=== PATIENT | female | born 1960 | race Caucasian/White ===

== ENCOUNTER → 2017-11-23 10:43 | Outpatient (CLI) | payer OTHER, SELFPAY ==
--- NOTE | 2017-11-23 11:17 | XR_ITS ---
XR chest 2V COMPARISON: CT scan abdomen pelvis 04/16/2014 HISTORY: Chest pain TECHNIQUE: PA and lateral chest FINDINGS: The lung figueroa are well expanded and appear clear of infiltrate. There is focal eventration of the right hemidiaphragm. There is a double density seen through the cardiac shadow left base consistent patient's known large hiatal hernia with approximately 1/4-1/3 of the stomach above the diaphragmatic hiatus. There is no pleural fluid. IMPRESSION: Nonacute chest findings
[2017-11-23 12:54] LABS: CKMB Relative Index 1.6 U/L (0-4.0); Creatine Kinase 85 U/L (26-192); Creatine Kinase MB 1.4 ng/ml (0.0-3.6); Troponin I < 0.02 ng/ml (0.00-0.06)
== END ==
PROVIDERS: PCP Family Medicine; Visit Provider Family Medicine
DX: R07.9 Chest pain, unspecified (principal)
CPT/HCPCS: 36415; 71046; 82550; 82553; 84484; 93005

== ENCOUNTER → 2017-12-10 08:12 | Outpatient (CLI) | payer OTHER, SELFPAY | PROVIDERS: Family Provider Family Medicine; PCP Family Medicine; Visit Provider Family Medicine | DX: R07.9 Chest pain, unspecified (principal) | CPT/HCPCS: 93017 ==

== ENCOUNTER 2018-01-03 09:09 | Outpatient (RCR) | payer OTHER, SELFPAY | END 2018-01-03 09:10 | disposition home or self-care (01) | LOC: PT 09:09 | PROVIDERS: Family Provider Family Medicine; PCP Family Medicine; Visit Provider Internal Medicine | DX: Z95.5 Presence of coronary angioplasty implant and graft (principal) | CPT/HCPCS: 93798 ==

== ENCOUNTER → 2018-01-18 09:14 | Outpatient (CLI) | payer OTHER, SELFPAY ==
[2018-01-18 10:50] LABS: Albumin Level 3.4 gm/dL (3.4-5.0); Alkaline Phosphatase 103 U/L (46-116); Bilirubin,Direct 0.1 mg/dL (0.0-0.2); HDL Cholesterol 33 mg/dL (29-89); Total Protein,Serum 6.5 gm/dL (6.4-8.2)
[2018-01-18 11:17] LABS: Alanine Aminotransferase 42 U/L (12-78); Bilirubin,Indirect 0.3 mg/dL (0.0-0.9); Bilirubin,Total 0.4 mg/dL (0.2-1.0); Chol/HDL Ratio 2.9 (1-3.5); Cholesterol 96 mg/dL (140-200); LDL Cholesterol 32 mg/dL (0-130); Triglycerides 155 mg/dL (30-200); VLDL Cholesterol 31 mg/dL (0-40)
[2018-01-18 11:20] LABS: Aspartate Amino Transferase 30 U/L (15-37)
== END ==
PROVIDERS: Family Provider Family Medicine; PCP Family Medicine; Visit Provider Internal Medicine Cardiovascular Disease
DX: R00.2 Palpitations (principal); R06.09 Other forms of dyspnea; I20.9 Angina pectoris, unspecified; R53.83 Other fatigue; Z79.899 Other long term (current) drug therapy; E66.9 Obesity, unspecified
CPT/HCPCS: 36415; 80061; 80076

== ENCOUNTER → 2018-07-10 07:23 | Outpatient (CLI) | payer OTHER, SELFPAY ==
[2018-07-10 08:09] LABS: Basophils # 0.1 K/mm3 (0-0.2); Basophils % 0.7 % (0.1-2.0); Eosinophils # 0.2 K/mm3 (0.0-0.4); Eosinophils % 3.3 % (0.1-12.0); Hematocrit 41.3 % (37.0-47.0); Hemoglobin 13.2 g/dL (12.2-16.2); Lymphocytes # 2.7 K/mm3 (0.7-4.5); Lymphocytes % 42.2 % (10-50); Mean Corpuscular Hemoglobin 30.7 pg (27.0-31.2); Mean Platelet Volume 8.5 fl (7.4-10.4); Monocytes # 0.4 K/mm3 (0.1-1.0); Monocytes % 5.5 % (1.7-9.3); Neutrophils # 3.1 K/mm3 (1.8-7.8); Neutrophils % 48.3 % (37.0-80.0); Platelet Count 211 K/mm3 (142-424); Red Cell Distribution Width 13.7 % (11.5-17.5); White Blood Count 6.4 K/mm3 (4.8-10.8)
[2018-07-10 08:44] LABS: Hemoglobin A1C 7.2 % (0.0-7.0)
[2018-07-10 09:19] LABS: Alanine Aminotransferase 36 U/L (12-78); Albumin Level 3.3 gm/dL (3.4-5.0); Alkaline Phosphatase 105 U/L (46-116); Anion Gap 12.7 mEq/L (5-15); Aspartate Amino Transferase 19 U/L (15-37); Bilirubin,Total 0.4 mg/dL (0.2-1.0); Blood Urea Nitrogen 13 mg/dL (7-18); Calcium 9.1 mg/dL (8.5-10.1); Carbon Dioxide 30 mmol/L (21.0-32.0); Chloride 105 mmol/L (98-107); Chol/HDL Ratio 2.5 (1-3.5); Cholesterol 98 mg/dL (140-200); Estimated Glomerular Filt Rate 74 ml/min (>60); GFR (African American) 89 ML/MIN (>60); Globulin 3.2 gm/dl (1.3-3.2); Glucose 118 mg/dL (74-106); HDL Cholesterol 39 mg/dL (29-89); Iron 70 ug/dl (28-170); LDL Cholesterol 32 mg/dL (0-130); Potassium 4.7 mmoL/L (3.5-5.1); Sodium 143 mmol/L (136-145); Total Protein,Serum 6.5 gm/dL (6.4-8.2); Triglycerides 135 mg/dL (30-200); VLDL Cholesterol 27 mg/dL (0-40)
[2018-07-12 10:51] LABS: Folate >20.0 ng/mL (>3.0); Vitamin B12 1380 pg/mL (232-1245)
[2018-07-12 10:52] LABS: Vitamin D 25 Hydroxy 52.9 ng/mL (30.0-100.0)
== END ==
PROVIDERS: Visit Provider Family Medicine
DX: R73.9 Hyperglycemia, unspecified (principal); Z98.84 Bariatric surgery status
CPT/HCPCS: 36415; 80053; 80061; 82607; 82652; 82746; 83036; 83540; 85025

== ENCOUNTER → 2018-07-18 09:22 | Outpatient (CLI) | payer OTHER, SELFPAY ==
--- NOTE | 2018-07-18 09:24 | XR_ITS ---
XR knee RT 4V HISTORY: ITS.REASON: Knee pain ORDERING PHYSICIAN: Enrique Valdes MD PATIENT AGE: 58 years COMPARISON: None FINDINGS: Osteoarthritic changes are present involving all 3 compartments greater at the medial compartment and patellofemoral joint. No acute fracture or dislocation is evident. No lytic or blastic change. There are some nonspecific soft tissue calcifications along the medial aspect of the proximal tibia and along the pretibial region anteriorly which may be vascular. There is a calcification along the superior aspect of the patella which could be due to an old avulsion fracture. IMPRESSION: Mild to moderate osteoarthritic changes
--- NOTE | 2018-07-18 09:24 | XR_ITS ---
XR knee LT 4V HISTORY: Left knee pain ITS.REASON: Knee pain ORDERING PHYSICIAN: Enrique Valdes MD PATIENT AGE: 58 years COMPARISON: None FINDINGS: There are mild osteoarthritic changes involving all 3 compartments greater lung medial compartment and patellofemoral joint. No fracture or dislocation. No lytic or blastic change. There is a small calcific density along the lateral aspect of the medial joint space measuring 6 mm and may represent a loose body. There are a few calcific densities in the pretibial region anteriorly probably related to vascular calcifications. IMPRESSION: Mild to moderate osteoarthritis of the left knee with loose body of the medial compartment
--- NOTE | 2018-07-18 09:24 | XR_ITS ---
XR hip LT 2-3V w/pelvis HISTORY: Left hip pain ITS.REASON: Hip pain ORDERING PHYSICIAN: Enrique Valdes MD PATIENT AGE: 58 years COMPARISON: None FINDINGS: No fracture or dislocation. No significant arthritic change. Well-circumscribed calcific density is present just lateral to the ischium and could be related to an old avulsion injury of the ischium or accessory center of ossification. No lytic or blastic change. IMPRESSION: Negative left hip
--- NOTE | 2018-07-18 09:31 | MM_ITS ---
MM Dig screening mamm BI w/CAD ORDERING PHYSICIAN : Enrique Valdes MD PATIENT AGE: 58 years GENDER: Female COMPARISON: July 2017, 2015, 2014 INDICATION: ITS.REASON: SCREENING no hormones. No new complaints. Noncontributory family history TECHNIQUE: Standard CC and MLO images were obtained. R2 CAD reviewed. FINDINGS: Mild to moderate residual fibroglandular elements throughout both breast with with moderate fatty replacement..Lower density breast bilaterally. No dominant mass nor suspicious calcifications. No significant change in prior study. Bilateral follow-up in one year recommended. A stable scattered benign calcifications bilaterally. RIGHT BREAST:. No significant new findings follow-up in one year. LEFT BREAST: No new findings of significant concern. Minimal density at the central breast cc view is similar to 2016. Bilateral Follow-up in one year would be adequate IMPRESSION: Stable bilateral mammogram. No areas of significant concern. Bilateral follow-up in one recommended.\ BI-RADS Category: 2 Benign Finding(s) RECOMMENDED FOLLOW-UP: 1YR 1 YEAR FOLLOW-UP (A letter has been sent to the patient regarding results of the study.)
== END ==
PROVIDERS: PCP Family Medicine; Referring Provider Orthopaedic Surgery; Visit Provider Family Medicine
DX: M25.561 Pain in right knee (principal); M25.562 Pain in left knee; M25.552 Pain in left hip; Z12.31 Encounter for screening mammogram for malignant neoplasm of breast
CPT/HCPCS: 73502; 73564; 77067

== ENCOUNTER → 2019-02-14 16:27 | Outpatient (CLI) | payer OTHER, SELFPAY ==
--- NOTE | 2019-02-14 16:36 | XR_ITS ---
EXAM: XR cervical spine 3V HISTORY: Neck pain, paresthesias, left hand and arm numbness ITS.REASON: PARESTHESIA OF LEFT ARM ORDERING PHYSICIAN: MARLEE James PATIENT AGE: 59 years COMPARISON: None FINDINGS: Severe degenerative disc disease is present at C5-C6 and C6-C7. Moderate degenerative disc disease is present at C4-C5 and C7-T1. There is 3 mm anterolisthesis of C7. There is kyphosis at the C4-C5 interspace. Moderate facet arthritic changes are present C4-C7. No obvious fracture or dislocation. IMPRESSION: Severe degenerative disc disease C5-C6 and C6-C7 with kyphosis at C4-C5 and mild anterolisthesis of C7 on T1
--- NOTE | 2019-02-14 16:36 | XR_ITS ---
EXAM: XR lumbar spine min 4V HISTORY: ITS.REASON: ACTUE LOW BACK PAIN ORDERING PHYSICIAN: MARLEE James PATIENT AGE: 59 years COMPARISON: None FINDINGS: There is mild lumbar curvature convex right. Multilevel degenerative disc disease is present from T11 to S1. There is mild wedging of the T12 vertebral body which appears chronic. There is mild retrolisthesis of L1 on L2 and L2 on L3 of 3 and 4 mm and anterolisthesis of L4 on L5 of 9 mm. There is retrolisthesis of L5 on S1 of 5 mm. No acute fracture or dislocation is evident.. Facet arthritic changes are present at L4-L5 and L5-S1. Incidental note is made of a staghorn calculus in the left renal pelvis at 3.4 x 2 cm. There are 2 calculi in lower pole left kidney at 6 and 5 mm area IMPRESSION: 1. Lumbar spondylosis with multilevel degenerative disc disease and facet arthritic change as described above. 2. Left nephrolithiasis with staghorn calculus on the left
== END ==
PROVIDERS: PCP Family Medicine; Visit Provider Physician Assistant
DX: M54.5 Low back pain (principal); R20.2 Paresthesia of skin
CPT/HCPCS: 72040; 72110

== ENCOUNTER 2019-03-20 08:30 | Outpatient (RCR) | payer OTHER, SELFPAY ==
--- NOTE | 2019-03-04 09:48 | HMH.PTOPEV ---
PT Outpatient Evaluation Rehab PT Outpatient Evaluation Start: 03/04/19 08:53 Freq: Status: Active Protocol: Document 03/04/19 08:53 FREDDY (Rec: 03/04/19 09:48 FREDDY [id number]) Electronically Signed By Walter Maloney, PT 03/04/19 08:53 Outpatient Therapy Subjective History Subjective History Patient presents to outpatient PT with reports of chronic L hip and cervical spine of insidious onset. L hip pain starting approximately 8 months ago that has progressively gotten worse over the past 2 months. Cervical spine pain is intermittent. Most recent diagnostics indicate lumbar spondylosis/DDD and cervical DDD, C7/T1 anterolisthesis and increased kyphosis. Comorbidities include HTN, HLD , hx of heart cath. Chief Complaint Pain,Stiff Symptom Type Sharp,Shooting Symptoms Relieved By Activity,Shaking Symptoms Aggravated By Physical Activity,Walking Prior Functional Limitations None Current Functional Limitations Lifting,Housework,Standing, Squatting,Recreation Activity, Walking,Bending/Stooping Symptom Description Constant but Variable Level of pain today (0-10) 4 Pain scale - at its best (0-10) 2 Pain scale - at its worst (0-10) 8 Cervical Eval Palpation Cervical Muscles R CT Junction,L CT Junction Cervical/Thoracic Palpation Findings Tenderness Posture Head/C-Spine Posture Sitting Position C-Spine Flattened Head/C-Spine Posture Standing Position C-Spine Flattened Flexibility Deficits Upper Trapezius Muscle Length (R) Mild Tightness,(L) Mild Tightness Levaetor Scapulae Muscle Length (R) Mild Tightness,(L) Mild Tightness Pectoralis Minor Muscle Length (R) Mild Tightness,(L) Mild Tightness Passive Joint Mobility Cervical PIVM Dec: R C5/6 L C5/6 R C6/7 L C6/7 R C7/T1 L C7/T1 WNL: R OA L OA R AA L AA R C2/3
== END 2019-05-07 13:31 | disposition home or self-care (01) ==
LOC: PT 08:30
PROVIDERS: Visit Provider Physician Assistant
DX: M25.559 Pain in unspecified hip (principal); M54.2 Cervicalgia
CPT/HCPCS: 97010; 97014; 97033; 97035; 97110; 97163; G0283

== ENCOUNTER → 2019-09-15 10:38 | Outpatient (CLI) | payer OTHER, SELFPAY ==
--- NOTE | 2019-09-15 10:41 | MM_ITS ---
PROCEDURE: MM DIG SCREENING MAMM BI W/CAD CLINICAL INDICATION: SCREENING There is no personal or family history of breast cancer. COMPARISON: [facility] DIG MAMM-SCREEN BHARATI from 07/25/2016 [facility] DIG MAMM-SCREEN BHARATI W/CAD from 07/27/2017 [facility] MM Dig screening mamm BI w/CAD from 07/18/2018 TECHNIQUE: Standard CC and MLO images and 3D Tomosynthesis was obtained. R2 CAD reviewed. FINDINGS: Diffuse scattered fibroglandular densities are seen throughout both breasts somewhat lessening the sensitivity of mammography. There are scattered benign-appearing microcalcifications in each breast. There is a mole seen near the inframammary fold left breast. There is no suspicious lesion and no suspicious microcalcifications. [place] images were reviewed. IMPRESSION: Moderate diffuse breast density with no suspicious lesions seen BI-RAD Category: 2 Benign Finding(s) FOLLOW-UP: 1YR 1 Year Follow-up (A letter has been sent to the patient regarding results of the study.) Dictated by: Dr. Guy Ruiz MD 09/17/2019 08:[address] Guy Ruiz MD in [place] 09/17/2019 08:18
== END ==
PROVIDERS: PCP Family Medicine; Visit Provider Family Medicine
DX: Z12.31 Encounter for screening mammogram for malignant neoplasm of breast (principal)
CPT/HCPCS: 77063; 77067

== ENCOUNTER → 2019-09-16 08:48 | Outpatient (POV) | payer OTHER, SELFPAY | PROVIDERS: Visit Provider Dermatology | DX: Z00.00 Encounter for general adult medical examination without abnormal findings (principal) ==

== ENCOUNTER → 2020-03-29 12:33 | Outpatient (CLI) | payer OTHER, SELFPAY ==
--- NOTE | 2020-03-29 12:37 | XR_ITS ---
PROCEDURE: XR KNEE RT 4V CLINICAL INDICATION: RT knee pain COMPARISON: CR [id number] KNEE-4 OR 5 VIEWS-RT from 06/28/2017 CR [id number] KNEE-4 OR 5 VIEWS-LT from 06/28/2017 CR [id number] XR knee RT 4V from 07/18/2018 CR [id number] XR knee LT 4V from 07/18/2018 FINDINGS: No fracture or dislocation. No lytic or blastic change. There is normal mineralization. There are osteoarthritic changes involving all 3 compartments. There is mild lateral subluxation of the tibia by 6 mm. There is dystrophic calcification along the proximal medial aspect of the tibia. Hypertrophic changes are present along the inferior patella posteriorly and there is ununited ossification center along the superior patella Other findings:None. IMPRESSION: Osteoarthritic changes as described above Dictated by: Mulugeta Carrera MD 03/29/2020 13:14 Mulugeta Carrera MD in [place] 03/29/2020 13:14
== END ==
PROVIDERS: PCP Family Medicine; Visit Provider Orthopaedic Surgery
DX: M25.561 Pain in right knee (principal)
CPT/HCPCS: 73564

== ENCOUNTER → 2020-04-12 09:12 | Outpatient (CLI) | payer OTHER, SELFPAY ==
--- NOTE | 2020-04-12 09:16 | XR_ITS ---
PROCEDURE: XR HIP RT 2-3V W/PELVIS CLINICAL INDICATION: RT hip pain COMPARISON: CR [id number] XR hip LT 2-3V w/pelvis from 07/18/2018 FINDINGS: No acute fracture or dislocation. There are minimal osteoarthritic changes. There is a transverse area of sclerosis involving the femoral neck which is not significantly changed from 07/18/2018.. No lytic or blastic change. IMPRESSION: Minimal osteoarthritic change of the right hip Dictated by: Mluugeta Carrera MD 04/12/2020 10:40 Mulugeta Carrera MD in [place] 04/12/2020 10:40
== END ==
PROVIDERS: PCP Family Medicine; Visit Provider Orthopaedic Surgery
DX: M25.551 Pain in right hip (principal)
CPT/HCPCS: 73502

== ENCOUNTER → 2020-06-03 09:44 | Outpatient (POV) | payer OTHER, SELFPAY ==
[2020-06-03 10:07] VITALS: BP 154/94; PULSE 74; RESP 18; O2SAT 98; BMI 31.6
--- NOTE | 2020-06-03 12:06 | HMH.PMCON ---
Assessment and Plan (1) Right hip pain Status: Acute Category: Medical Code(s): M25.551 - Pain in right hip (2) Arthritis of right hip Status: Acute Category: Medical Code(s): M16.11 - Unilateral primary osteoarthritis, right hip (3) Numbness and tingling in left arm Status: Chronic Category: Medical Code(s): R20.0 - Anesthesia of skin; R20.2 - Paresthesia of skin - Assessment and plan all Dx Assessment and Plan for all problems:: The patient reports to not have any pain today. She is continue with aquatic therapy and says this is beneficial for her pain. She also undergoes chiropractic therapy which she also reports to be beneficial for her pain. She is not having any hip pain at this time. She does still have some numbness and tingling in her left arm, however, she does not want to pursue any type of interventional therapy to the area at this time. We will plan to follow-up with the patient as needed. We have establish care with the patient. If her pain does return she has been encouraged to contact the clinic for an appointment. The patient and I specifically discussed risk factors for COVID19. These risks include, but are not limited to age greater than 60, heart or lung disease, diabetes, immunosuppression, and travel. We also discussed NSAIDs may worsen COVID19 infection or symptoms. Patient should not use NSAIDs to treat COVID19 signs or symptoms. Patient was also informed that any type of corticosteroid of any form (oral or injection) will decrease the patient's immune system response and may increase the likelihood of COVID19 infection [address] symptoms[address]. Odom has reviewed this note and agrees with this plan of care. This note was dictated using voice recognition software and make contain errors or omissions. HPI - Data of Consult Patient: new to practice Consult date: 06/03/20 Requesting Physician: Ale Sandoval APRN Primary Care Provider: Enrique Valdes MD - Consult Narrative Reason for consult: Right hip pain History of present illness: Ms. Gottlieb is a 60 year old female who presents today for consultation for right hip pain. Patient says that approximately 1 month ago she began to develop severe right hip pain. She says that the pain was so intense she was unable to ambulate. The patient does see Dr. Reeder for bilateral knee pain. The patient was complaining of hip pain with Dr. Reeder who advised her to undergo an x-ray of her right hip. Dr. Reeder was also concerned that the patient may have radicular pain from her lumbar spine. Patient says that since seeing Dr. Reeder, she no longer has right hip pain. She says that the pain subsided on its own. She does take [id number] Motrin. She is complaining today, however, of left arm numbness and tingling. She says that it does stop at her wrist. She denies any numbness and tingling in her hands. Patient says she does not have any neck pain, however. Patient says that she has had this intermittent numbness and tingling to her left arm for many years. Patient says it is tolerable and not something that she wishes to seek treatment for at this time. Patient does currently undergo aquatic therapy. She did have physical therapy in the past but none of recent days. She is also had chiropractic therapy in the past which has given her relief of both her hip and her left arm numbness and tingling. Patient does rate her pain a 0 out of 10 today. She says she is here today with the appointment simply to establish care. CC: Ale Sandoval APRN [facility] History I have reviewed the patient's past medical history: Yes Medical History: Reports:: Coronary Artery Disease, Hyperlipidemia, Hypertension Denies:: Cancer, Diabetes Mellitus Type 1, Diabetes Mellitus Type 2, Internal Pacemaker, Lung Disease, MRSA, Seizures *Have you ever received a pneumonia vaccine?: Yes *Have you received a flu vaccine this season?: Yes Other Medical
== END ==
PROVIDERS: PCP Family Medicine; Visit Provider Clinical Nurse Specialist Family Health
DX: M25.551 Pain in right hip (principal); M16.11 Unilateral primary osteoarthritis, right hip; R20.0 Anesthesia of skin
CPT/HCPCS: 99202

== ENCOUNTER → 2020-11-22 10:21 | Outpatient (CLI) | payer OTHER, SELFPAY ==
--- NOTE | 2020-11-22 10:23 | MM_ITS ---
PROCEDURE: MM DIG SCREENING MAMM BI W/CAD Digital Breast Tomosynthesis Included CLINICAL INDICATION: SCREENING There is no personal or family history of breast cancer. COMPARISON: MG [facility] DIG MAMM-SCREEN BHARATI W/CAD from 07/27/2017 [facility] MM Dig screening mamm BI w/CAD from 07/18/2018 MG MM DIG SCREENING MAMM BI W/CAD from 09/15/2019 TECHNIQUE: Standard CC and MLO images and 3D Tomosynthesis was obtained. R2 CAD reviewed. FINDINGS: Moderate diffuse fibroglandular densities are seen throughout both breasts. There multiple benign-appearing micro and macrocalcifications in each breast. There are mole markers on each breast. There is no new or suspicious lesion in either breast and no suspicious microcalcifications. IMPRESSION: Moderate diffuse breast density with no suspicious lesions seen BI-RAD Category: 2 Benign Finding(s) FOLLOW-UP: 1YR 1 Year Follow-up (A letter has been sent to the patient regarding results of the study.) Dictated by: Dr. Guy Ruiz MD 11/24/2020 16:53 Dr. Guy Ruiz MD in [place] 11/24/2020 16:53
== END ==
PROVIDERS: PCP Family Medicine; Visit Provider Family Medicine
DX: Z12.31 Encounter for screening mammogram for malignant neoplasm of breast (principal)
CPT/HCPCS: 77063; 77067

== ENCOUNTER → 2020-11-24 08:08 | Outpatient (CLI) | payer OTHER, SELFPAY ==
[2020-11-24 08:50] LABS: Hemoglobin A1C 8.8 % (4.0-6.0)
[2020-11-24 09:00] LABS: Alanine Aminotransferase 26 U/L (12-78); Albumin Level 3.6 g/dl (3.5-5.0); Albumin/Globulin Ratio 1.3 (1.1-1.8); Alkaline Phosphatase 107 U/L (38-126); Anion Gap 9.3 mEq/L (5-15); Aspartate Amino Transferase 31 U/L (14-36); Bilirubin,Total 0.5 mg/dl (0.2-1.3); Blood Urea Nitrogen 14 mg/dl (7-17); Calcium 9.2 mg/dl (8.4-10.2); Carbon Dioxide 29 mmol/L (22.0-30.0); Chloride 109 mmol/L (98-107); Chol/HDL Ratio 3.2 (1-3.5); Cholesterol 115 mg/dl (140-200); Estimated Glomerular Filt Rate 85 ml/min (>60); GFR (African American) 103 ML/MIN (>60); Globulin 2.7 g/dL (1.3-3.2); Glucose 131 mg/dl (74-100); HDL Cholesterol 36 mg/dl (40-60); Potassium 4.3 mmoL/L (3.5-5.1); Sodium 143 mmol/L (136-145); Total Protein,Serum 6.3 g/dl (6.3-8.2); Triglycerides 120 mg/dl (30-150); VLDL Cholesterol 24 mg/dL (0-40)
[2020-11-24 10:05] LABS: Vitamin B12 923 pg/mL (239-931)
[2020-11-24 10:14] LABS: Folate > 20.00 ng/mL
[2020-11-24 10:22] LABS: Iron 71 ug/dL (37-170)
[2020-11-24 14:17] LABS: 25-OH Vitamin D, Total 44.1 ng/mL (30-100)
== END ==
PROVIDERS: Visit Provider Family Medicine
DX: E11.9 Type 2 diabetes mellitus without complications (principal); E78.5 Hyperlipidemia, unspecified; I10 Essential (primary) hypertension; Z79.84 Long term (current) use of oral hypoglycemic drugs; Z68.30 Body mass index [BMI] 30.0-30.9, adult
CPT/HCPCS: 36415; 80053; 80061; 82306; 82607; 82746; 83036; 83540

== ENCOUNTER → 2021-02-07 15:32 | Outpatient (CLI) | payer OTHER, SELFPAY ==
--- NOTE | 2021-02-07 15:36 | CT_ITS ---
PROCEDURE: CT ABDOMEN PELVIS WO CON CLINICAL INDICATION: STAGHORN RENAL CALCULUS Lt hip/flank pain COMPARISON: CT [id number] CT ABD PELVIS W/ CONTRAST from 04/16/2014 TECHNIQUE: Axial images obtained with sagittal and coronal reformats. All CT scans at the facility use one or more dose reduction, viz: automated exposure control, ma/kV adjustment per patient size (including targeted exams where dose is matched to indication, i.e. head), or iterative reconstruction technique. FINDINGS: LOWER THORAX: Coronary artery calcifications/stents are noted. Diaphragmatic hernia is present on the left posteriorly and medially containing portion of the bypassed stomach. ABDOMEN & PELVIS: Status post prior gastric bypass surgery. 4.8 x 3.8 cm cyst is present in the left hepatic lobe previously 4.3 by 3.8 cm. Hypodensity is present in the right hepatic lobe anteriorly at 7 mm unchanged. Slight increased density in the posterior aspect of the gallbladder inferiorly and could represent small stones or sludge. No acute finding of the spleen. 2 cm left adrenal nodule not significantly changed possibly due to an adenoma. Unremarkable appearance of the pancreas. Previously noted soft tissue density inferior to the head of the pancreas is once again noted but appears somewhat less apparent possibly due to a duodenal diverticulum. Please correlate with endoscopy and upper GI if not already performed. A 3 x 1.8 by 1 cm staghorn calculus is present in the left renal pelvis at the ureteropelvic junction with mild to moderate left-sided hydronephrosis. There is gas present within the left renal pelvis and calices. There are 2 stones are present in the lower pole renal calyx on the left as well measuring 6 mm each. There is a 2.5 cm cyst in the lower pole of the right kidney with a few small punctate stones in the lower pole. No ureteral calculi are evident. Triangular shaped area of increased soft tissue density is present in the anterior abdomen just posterior to the abdominal wall containing some coarse calcification. This density measures 2 point 3 x 3.3 cm not significantly changed in size but now containing some coarse calcification. No intestinal obstruction or free air. Unremarkable appendix. There is a focally dilated bowel loop in the left mid abdominal region and may be result from the previous gastric bypass. Colonic diverticulosis. No evidence of diverticulitis. No obvious pelvic mass or abnormal fluid collection. Degenerative changes are present in the lumbar spine with kyphosis at the thoracolumbar junction. There is 6 mm anterolisthesis of L4 on L5. Mild chronic wedging of T12. IMPRESSION: 1. Staghorn calculus of the left kidney at the renal pelvis and UPJ as described above. This measures 3 x 1.8 x 1 cm causing moderate left-sided hydronephrosis. Gas is present in the left renal pelvis and calices. Differential diagnosis includes emphysematous pyelonephritis versus recent instrumentation. 2. Bilateral nephrolithiasis. 3. Abnormal soft tissue density along the anterior abdominal wall centrally 9.5 cm cephalad to the umbilicus possibly related to scarring from previous surgery. Please correlate with patient's history. Soft tissue tumor would be included in the differential diagnosis. 4. Soft tissue density inferior to the head of the pancreas appears somewhat less a apparent possibly due to lack of IV and oral contrast. This could be due to a duodenal diverticulum and may be confirmed with endoscopy and upper GI if not already performed. 5. Other nonacute findings as described above. Please see above for detail. Dictated by: Mulugeta Carrera MD 02/08/2021 08:56 Mulugeta Carrera MD in [place] 02/08/2021 08:56
== END ==
PROVIDERS: PCP Family Medicine; Visit Provider Family Medicine
DX: N20.0 Calculus of kidney (principal)
CPT/HCPCS: 74176

== ENCOUNTER → 2021-02-22 15:55 | Outpatient (CLI) | payer OTHER, SELFPAY | PROVIDERS: Visit Provider Urology | DX: N20.0 Calculus of kidney (principal) | CPT/HCPCS: 87086; 87088; 87186 ==

== ENCOUNTER → 2021-02-26 10:51 | Outpatient (CLI) | payer OTHER, SELFPAY ==
[2021-02-26 10:55] LABS: MANUAL DIFFERENTIAL MANUAL DIFFERENTIAL (MANUAL DIFF)
[2021-02-26 11:50] LABS: Basophils # 0.1 K/mm3 (0-0.2); Basophils % 1.2 % (0.1-2.0); Eosinophils # 0.3 K/mm3 (0.0-0.4); Eosinophils % 3.5 % (0.1-12.0); Hematocrit 40.6 % (37.0-47.0); Hemoglobin 13.7 g/dL (12.2-16.2); Lymphocytes # 3.2 K/mm3 (0.7-4.5); Lymphocytes % 43.8 % (10-50); Mean Corpuscular HGB Conc 33.6 g/dL (31.8-35.4); Mean Corpuscular Hemoglobin 30.4 pg (27.0-31.2); Mean Corpuscular Volume 90.5 fl (81-99); Mean Platelet Volume 8.6 fl (7.4-10.4); Monocytes # 0.4 K/mm3 (0.1-1.0); Monocytes % 5.5 % (1.7-9.3); Neutrophils # 3.4 K/mm3 (1.8-7.8); Platelet Count 213 K/mm3 (142-424); Red Blood Count 4.49 M/mm3 (4.20-5.40); Red Cell Distribution Width 13.7 % (11.5-17.5); White Blood Count 7.4 K/mm3 (4.8-10.8)
[2021-02-26 12:09] LABS: Eosinophils % 4 % (0-3); Lymphocytes % 39 % (10-50); Macrocytosis 1+; Monocytes % 15 % (2-9); Neutrophils % 41 % (42-76); Platelet Estimate Normal; Total Cells Counted 100
[2021-02-26 12:21] LABS: Chloride 103 mmol/L (98-107); Sodium 141 mmol/L (136-145)
[2021-02-26 12:22] LABS: Potassium 4.8 mmoL/L (3.5-5.1)
[2021-02-26 12:24] LABS: Blood Urea Nitrogen 13 mg/dl (7-17); Estimated Glomerular Filt Rate 85 ml/min (>60); GFR (African American) 103 ML/MIN (>60)
[2021-02-26 12:25] LABS: Anion Gap 12.8 mEq/L (5-15); Calcium 9.6 mg/dl (8.4-10.2); Carbon Dioxide 30 mmol/L (22.0-30.0); Glucose 129 mg/dl (74-100)
== END ==
PROVIDERS: Visit Provider Urology
DX: Z01.812 Encounter for preprocedural laboratory examination (principal); Z11.52 Encounter for screening for COVID-19; N20.0 Calculus of kidney
CPT/HCPCS: 36415; 80048; 85007; 85014; 85018; 85048; 85049; U0003

== ENCOUNTER 2021-02-28 10:17 | Day surgery (SDC) | payer OTHER, SELFPAY ==
[2021-02-28] VITALS (10 sets, daily range): BP systolic 120–153; BP diastolic 66–104; PULSE 56–85; RESP 12–18; TEMP 36.1–43; O2SAT 93–100
--- NOTE | 2021-02-28 12:54 | P.PN_ITS ---
[facility] Anesthesia Checklist - Structural Data Admitted From: Home Planned Operative Procedure/s: cysto w stent Consent for Planned Operative Procedure(s) Verified: Yes - Additional verifications Anesthesia Reactions: No Hx Blood Transfusions: No Blood Transfusion Reaction: No - Airway Assessment C-Spine Mobility Assessed: Yes TMJ Mobility Assessed: Yes Dentition: Dentures-good fit - Neurological Assessment Level of Consciousness: Awake, Alert, Appropriate - Anesthesia Plan Anesthesia Risk discussed: Yes Anesthesia Plan: Verified ASA Class: III Anesthesia Type: General [facility] History I have reviewed the patient's past medical history: Yes Medical History: Reports:: Coronary Artery Disease, Diabetes Mellitus Type 2, Hyperlipidemia, Hypertension Denies:: Cancer, Diabetes Mellitus Type 1, Internal Pacemaker, Lung Disease, MRSA, Seizures *Have you ever received a pneumonia vaccine?: No *Have you received a flu vaccine this season?: Yes Other Medical History: Reports: Arthritis, Other. Denies: Blood Transfusion Reaction Anesthesia experience/problems:: none Other Surgeries: Yes: No Previous Surgery, Bariatric Surgery, Cardiac Catheterization, Colonoscopy, Coronary Stent, Hernia Repair, Tubal Ligation. No: Pacemaker Amputation: No Fractures: No - *Social History Smoking Status: Former smoker Alcohol Intake: never Alcohol Intake Frequency:: other Substance Use Type: denies use *Occupational Status:: employed Housing: house Household Members: spouse *Travel in the last 8 weeks: None Family Hx:: Diabetes, Cancer
--- NOTE | 2021-02-28 13:28 | HMH.ANESI ---
[facility] Anesthesia Record Part I Intake, IV Amount: 1,200 Estimated blood loss (mL): 0 Urine output (mL): 0 Blood Pressure: 153/89 SaO2: 95 Pulse Rate: 67 Respiratory Rate: 12 Temperature: 97.8 F Patient is:: Awake, Stable Stable to PACU at:: 13:25
--- NOTE | 2021-02-28 13:32 | XR_ITS ---
PROCEDURE: XR KUB CLINICAL INDICATION: CYSTO EITH STENT PLACEMENT LEFT SIDE COMPARISON: CT CT ABDOMEN PELVIS WO CON from 02/07/2021 FINDINGS: Retrograde contrast administration of the left pelvicalyceal system demonstrates minor clubbing of the calluses of the left kidney. Focal filling defect is noted in the proximal left ureter which may represent known calculus. Focused bladder view demonstrates stent placement on the 2nd image. IMPRESSION: Left ureteric stent. Dictated by: Shira Grubbs 02/28/2021 15:18 Shira Grubbs in [place] 02/28/2021 15:18
--- NOTE | 2021-02-28 13:58 | PC.NURSE ---
1355- blood sugar taken by valentin phipps and valentin neves. Blood Glucose was 110. 1354- Detailed report called to Clement Gibbs rn. Pt left in stable condition with valentin stewart by valentin jensen.
[2021-02-28 14:01] LABS: POC Glucose,Bedside 110 (70-110)
[2021-02-28 14:39] LABS: Microscopic, Urine URINE MICROSCOPIC (MICROSCOPIC)
[2021-02-28 14:50] LABS: Appearance,Urine SL CLOUDY (Clear); Bilirubin,Urine Negative (Negative); Blood, Urine 3+ (Negative); Color,Urine STRAW (Yellow); Glucose,Urine (UA) Negative (Negative); Ketones,Urine Negative (Negative); Leukocyte Esterase,Urine Negative (Negative); Nitrate,Urine Negative (Negative); PH,Urine 5.5 (5.0-8.5); Protein,Urine Negative (Negative); Specific Gravity, Urine <= 1.005 (1.005-1.030); Urobilinogen,Urine 0.2 EU/dl (0.2)
[2021-02-28 15:16] LABS: RBC,Urine 20-50 #/hpf (0-3)
--- NOTE | 2021-02-28 15:19 | P.OP_ITS ---
Date of procedure: 02/28/21 Pre-op Diagnosis:: 3 cm left UPJ stone with obstruction Post-op Diagnosis:: 3 cm left UPJ with obstruction Procedure performed:: Cystoscopy with left retrograde pyelogram and left stent placement, complicated Surgeon:: Sherif Moore MD SHAPING MACHINE OPERATOR:: Preston Sethi Anesthesia: LMA Estimated blood loss (mL): 0 Clinical Note:: Patient is a 61-year-old white female with a 3 cm stone noted on recent CT scan. There was evidence of some gas in the renal pelvis as well on the CT scan. She denies any fevers or chills or feeling poorly. She presents today for urologic evaluation and management. Operative findings:: There was evidence of ureteral narrowing distal to the stone and there was difficulty passing the wire up to the level of the stone with some tortuosity of the proximal ureter. I was unable to pass a wire initially and a retrograde pyelogram was performed showing that there was a thin line of contrast that got by the stone inferiorly. Fortunately I was able to pass the stent and there was very little urine from the kidney. Operative note:: Patient taken to the operating room after informed consent was obtained. She was placed on the operating table in the supine position and general anesthesia administered. She had been on oral Levaquin at home for the past few days. Sequential compression devices placed and she was placed into the dorsolithotomy position. She was prepped draped in the standard surgical fashion. A 22 Holden passed into the urethra and into the bladder without difficulty. The bladder was examined in a systematic fashion and there is no evidence of bladder abnormalities. The ureteral orifices in their normal anatomic position. A 5 F rench ureteral catheter passed into the left ureteral orifice and proximally. There was resistance in the mid ureter and the sensor guidewire was then passed through the ureteral catheter. There is noted to be some tortuosity of the proximal ureter 3 cm below the stone. After multiple attempts to negotiate the tortuous ureter with the sensor guidewire I removed the sensor guidewire and used a 0.035 zip wire through the ureteral catheter and the wire did negotiate some of the tortuosity but did have trouble getting by the stone. Then removed the zip wire and a retrograde pyelogram was performed showing some extravasation of contrast from the proximal ureter but a thin wisp of contrast was noted in the inferior part of the ureter. With this as a landmark I replaced the zip wire with a curved and and manipulated the guidewire to where I force and was able to pass it through the tract at the inferior end of the UPJ and into the renal pelvis. I then passed the ureteral catheter over the wire and remove the zip wire and replaced the sensor guidewire. I then passed a 6 x 26 Spanish stent over the guidewire and removed the guidewire as well as the string. A good curl was noted proximally and distally. Inspection of the stent afterwards revealed very little urine output through the stent. Urine was noted to come from around the ureteral orifice. The proximal end of the stent was in the upper pole calyx. It is concerning that there was a small amount of urine after placement of the stent. Discussed the findings with the patient's family. Plan will be to repeat a CT scan in a couple of weeks to evaluate for the pyelitis. She will continue on with Levaquin in the meantime. Condition: stable Disposition: PACU Specimens:: Urine culture Complications:: None
--- NOTE | 2021-03-01 07:44 | P.PN_ITS ---
[facility] Anesthesia Record Part II Discharge Time: 13:55 Destination: Surgical Day Care (OP Surgery) PACU nurse assessment reviewed?: Yes Patient Condition:: Good Anesthesia Complications:: None Swallowing reflex intact?: Yes Cyanosis?: No Blood Pressure: 146/97 Pulse Rate: 58 Temperature: 98 F Mental Status: Alert & Oriented Pain level:: 0 Nausea and/or vomitting:: None Intake, IV Amount: 0
[2021-03-01 07:45] VITALS: BP 146/97; PULSE 58; TEMP 36.6
[2021-03-01 10:57] LABS: POC Glucose,Bedside 109 (70-110)
== END 2021-02-28 14:32 | disposition home or self-care (01) ==
LOC: OR 10:20
PROVIDERS: PCP Family Medicine; Visit Provider Urology
PROC: (CPT 52005; principal; 2021-02-28 11:45)
DX: N13.8 Other obstructive and reflux uropathy (principal); N20.1 Calculus of ureter; E11.9 Type 2 diabetes mellitus without complications; I25.10 Atherosclerotic heart disease of native coronary artery without angina pectoris; E78.5 Hyperlipidemia, unspecified; I10 Essential (primary) hypertension; M19.90 Unspecified osteoarthritis, unspecified site; Z87.891 Personal history of nicotine dependence; Z80.9 Family history of malignant neoplasm, unspecified; Z83.3 Family history of diabetes mellitus
CPT/HCPCS: 52005; 74018; 81001; 82962; 87086; C1769; C2617; J2405

== ENCOUNTER → 2021-03-22 08:31 | Outpatient (CLI) | payer OTHER, SELFPAY ==
--- NOTE | 2021-03-22 08:35 | CT_ITS ---
PROCEDURE: CT ABDOMEN PELVIS WO CON CLINICAL INDICATION: kidney stone Left lower quadrant pain, left kidney stone, stent in place COMPARISON: CT ABDPELW CT ABD PELVIS W/ CONTRAST from 04/16/[address] ABDOMEN PELVIS WO CON from 02/07/2021 TECHNIQUE: Axial images obtained with sagittal and coronal reformats. All CT scans at the facility use one or more dose reduction, viz: automated exposure control, ma/kV adjustment per patient size (including targeted exams where dose is matched to indication, i.e. head), or iterative reconstruction technique. FINDINGS: LOWER THORAX: Coronary artery stent noted in the LAD region. ABDOMEN & PELVIS: Lobulated hypodensity in the left hepatic lobe measures 4.8 by 4.3 cm consistent with a hepatic cyst. Smaller hypodensity right hepatic lobe at 7 mm consistent with a cyst. Status post gastric bypass surgery. Multiple calcified granulomata of the spleen. Left adrenal gland is enlarged measuring near 0 Hounsfield units consistent with adenoma. Possible small gallstones. There is a left ureteral stent in place with the proximal aspect curled in the left mid polar renal calyx and distal aspect curled in the region of the urinary bladder. There is some minimal stranding of the fat around the left ureter. A prominent renal stone is present in the left UPJ measuring 2.5 cm by 1 x 1.5 cm. There are peripelvic renal cysts in the upper pole. Smaller caliceal stones are present on the left as well in the lower pole at 6 mm each. No hydronephrosis evident on the left. Previously noted dilated renal calices have improved since stent placement. There are punctate calculi of the right kidney. A 3 cm cyst is present in the lower pole on the right. No right ureteral calculi apparent. The there is a mild amount of retained colonic feces with colonic diverticulosis. No evidence of diverticulitis. No evidence of appendicitis. No intestinal obstruction or free air. No change Triangular-shaped soft tissue density noted deep to the abdominal wall 10 cm cephalad to the umbilicus containing some coarse calcification. There is mild stranding of the fat in the left pelvic sidewall and may be related to recent ureteral stent placement. Inflammatory changes here are consideration. IMPRESSION: 1. Left ureteral stent in place with left nephrolithiasis with a 2.5 x 1.5 cm stone in the left UPJ and proximal ureter with other left renal calculi in renal cyst with improvement in the left-sided hydronephrosis. There is mild stranding of the periureteral fat and left pelvic sidewall fat which may be related to the recent stent placement. 2. Nonobstructing punctate right renal calculi. 3. Other nonacute findings as described above. Dictated by: Mulugeta Carrera MD 03/23/2021 11:12 Mulugeta Carrera MD in [place] 03/23/2021 11:12
--- NOTE | 2021-03-22 12:45 | NM_ITS ---
PROCEDURE: NM RENAL FLOW AND FUNCTION CLINICAL INDICATION: kidney stone- lasix w-washout Evaluate function of left kidney COMPARISON: CT CT ABDOMEN PELVIS WO CON from 03/22/2021 FINDINGS: Dose: 9.93 mCi technetium Mag 3 40 mg Lasix IV with 20 mg given at 15 minutes and 20 mg given at 16 minutes Renal vascular phase images shows decreased blood flow to the left kidney compared to the right on the initial images. There is delayed renal excretion on left. Post Lasix images show downward slope to both kidneys. No evidence of obstruction. Relative function is 40 percent to the left kidney and 60 percent to the right kidney with a T max of 15.2 minutes on the left and 4.7 minutes on the right and T half max 17.7 minutes on the left and 4.4 minutes on the right. Percent excretion by the left kidney at 20 minutes is 7 percent and by the right kidney 76 percent. IMPRESSION: Decreased flow and delayed excretion of the left kidney compared to the right with relative function of 40 percent on the left and 60 percent on the right. No evidence of obstruction. Dictated by: Mulugeta Carrera MD 03/23/2021 09:02 Mulugeta Carrera MD in [place] 03/23/2021 09:02
--- NOTE | 2021-03-22 13:15 | HMH.ITSHM ---
Current Home Medications as stated by this patient Kimberly Gottlieb or technical support representative. []NITRO MULTIVITAMIN METFORMIN ATORVASTATIN ASA METOPROLOL LOSARTAN
== END ==
PROVIDERS: PCP Family Medicine; Visit Provider Urology
DX: N20.0 Calculus of kidney (principal)
CPT/HCPCS: 74176; 78707; A9562

== ENCOUNTER → 2021-04-26 10:44 | Outpatient (CLI) | payer OTHER, SELFPAY | PROVIDERS: Visit Provider Urology | DX: Z20.822 Contact with and (suspected) exposure to COVID-19 (principal) | CPT/HCPCS: C9803; U0003; U0005 ==

== ENCOUNTER → 2021-11-24 12:51 | Outpatient (CLI) | payer OTHER, SELFPAY ==
--- NOTE | 2021-11-24 12:54 | MM_ITS ---
PROCEDURE INFORMATION: Exam: MG Bilateral Screening 3D Mammography Exam date and time: 11/24/2021 12:53 PM Age: 61 years old Clinical indication: Screening examination TECHNIQUE: Imaging protocol: Bilateral Screening tomosynthesis and 2D mammography including computer-aided detection (CAD) when performed. COMPARISON: 1. MG MM DIG SCREENING MAMM BI W/CAD 11/22/2020 10:24 AM 2. MG MM DIG SCREENING MAMM BI W/CAD 09/15/2019 11:03 AM FINDINGS: MAMMOGRAPHY: Breast composition: The breast tissue is composed of scattered areas of fibroglandular density. Mass: None. Architectural distortion: None. Calcifications: No suspicious calcifications. Asymmetric density: None. Skin thickening: None. Axillary adenopathy: None. IMPRESSION: No mammographic evidence of malignancy. Annual screening is recommended unless otherwise clinically indicated. ASSESSMENT: BI-RADS Category 1: Negative
== END ==
PROVIDERS: PCP Family Medicine; Visit Provider Family Medicine
DX: Z12.31 Encounter for screening mammogram for malignant neoplasm of breast (principal)
CPT/HCPCS: 77063; 77067

== ENCOUNTER → 2021-12-20 11:37 | Outpatient (CLI) | payer OTHER, SELFPAY | PROVIDERS: Visit Provider Internal Medicine Gastroenterology | DX: Z01.812 Encounter for preprocedural laboratory examination (principal); Z11.52 Encounter for screening for COVID-19; Z12.11 Encounter for screening for malignant neoplasm of colon; Z80.0 Family history of malignant neoplasm of digestive organs | CPT/HCPCS: C9803; U0003; U0005 ==

== ENCOUNTER 2021-12-22 07:59 | Day surgery (SDC) | payer OTHER, SELFPAY ==
[2021-12-20 11:19] VITALS: BMI 30.2
--- NOTE | 2021-12-22 08:14 | HMH.ANESCL ---
[facility] Anesthesia Checklist - Patient Identification Patient Identification: Arm Band - Structural Data Admitted From: Home Planned Operative Procedure/s: Colonoscopy Consent for Planned Operative Procedure(s) Verified: Yes - NPO Status Verified Time NPO: 05:00 (Prep) - Additional verifications Anesthesia Reactions: No Hx Blood Transfusions: No Blood Transfusion Reaction: No - Airway Assessment C-Spine Mobility Assessed: Yes TMJ Mobility Assessed: Yes Dentition: Edentulous - Neurological Assessment Level of Consciousness: Awake Hx Seizures: No Numbness or tingling in extremities: No - Anesthesia Plan Anesthesia Risk discussed: Yes Anesthesia Plan: Verified ASA Class: III Anesthesia Type: MAC [facility] History I have reviewed the patient's past medical history: Yes Medical History: Reports:: Coronary Artery Disease, Diabetes Mellitus Type 2, Hyperlipidemia, Hypertension, Kidney Stones, Urinary Tract Infection Denies:: Cancer, Diabetes Mellitus Type 1, Internal Pacemaker, Lung Disease, MRSA, Seizures *Have you ever received a pneumonia vaccine?: No *Have you received a flu vaccine this season?: Yes Other Medical History: Reports: Arthritis, Other. Denies: Blood Transfusion Reaction Anesthesia experience/problems:: None Other Surgeries: Yes: No Previous Surgery, Bariatric Surgery, Cardiac Catheterization, Colonoscopy, Coronary Stent, Hernia Repair, Tubal Ligation. No: Pacemaker Amputation: No Fractures: No - *Social History Smoking Status: Never smoker Alcohol Intake: never Alcohol Intake Frequency:: other Substance Use Type: denies use *Occupational Status:: employed Housing: house Household Members: spouse *Travel in the last 8 weeks: None Family Hx:: No significant family history
[2021-12-22 08:17] VITALS: BP 115/75; PULSE 85; RESP 18; TEMP 36.6; O2SAT 98
[2021-12-22 08:29] LABS: POC Glucose,Bedside 136 (70-110)
[2021-12-22 09:29] VITALS: O2SAT 98
--- NOTE | 2021-12-22 09:37 | HMH.SCOPE ---
- Procedure: Date: 12/22/21 Patient Date of :: 1960 Procedure Performed:: Screening Colonoscopy - High risk Indications:: Family history of colon cancer Performing Provider:: Jaimee Welch MD Referring Provider:: Kavin Valdes MD Sedation:: Propofol Procedure:: After placing the patient in the left lateral decubitus position, the colonoscopy was gently inserted into the rectum and under direct visualization advanced to the cecum which was identified by transillumination in the right lower quadrant, identification of the ileocecal valve, appendiceal orifice, and cecal strap. Color, texture, mucosa, and anatomy of the colon were carefully examined with the scope. Findings:: Anal canal: normal Rectum: normal Sigmoid colon: normal without polyps or inflammatory changes, few scattered diverticuli Descending colon: normal without polyps or inflammatory changes Splenic flexure: normal Transverse colon: normal without polyps or inflammatory changes Hepatic flexure: normal Ascending colon: normal without polyps or inflammatory changes Cecum: normal Terminal ileum: not visualized Impression: Normal colonoscopy Recommendations:: Repeat exam in about FIVE years or so, sooner if clinically indicated Complications:: None Estimated blood obtained (mL): 0
[2021-12-22 09:40] VITALS: BP 87/60; PULSE 73; RESP 16; TEMP 36.3; O2SAT 93
[2021-12-22 09:50] VITALS: BP 93/56; PULSE 74; RESP 16; O2SAT 95
[2021-12-22 10:00] VITALS: BP 91/68; PULSE 76; RESP 16; O2SAT 96
[2021-12-22 10:15] VITALS: BP 103/60; PULSE 74; RESP 16; TEMP 36.3; O2SAT 99
== END 2021-12-22 10:15 | disposition home or self-care (01) ==
LOC: OUTP 08:00
PROVIDERS: PCP Family Medicine; Visit Provider Internal Medicine Gastroenterology
PROC: 0DJD8ZZ Inspection of Lower Intestinal Tract, Via Natural or Artificial Opening Endoscopic (ICD-10-PCS; CPT 45378; principal; 2021-12-22 09:00)
DX: Z12.11 Encounter for screening for malignant neoplasm of colon (principal); Z80.0 Family history of malignant neoplasm of digestive organs; K57.30 Diverticulosis of large intestine without perforation or abscess without bleeding; I25.10 Atherosclerotic heart disease of native coronary artery without angina pectoris; E11.9 Type 2 diabetes mellitus without complications; E78.5 Hyperlipidemia, unspecified; I10 Essential (primary) hypertension; M19.90 Unspecified osteoarthritis, unspecified site; Z87.442 Personal history of urinary calculi; Z87.440 Personal history of urinary (tract) infections
CPT/HCPCS: 45378; 82962

== ENCOUNTER → 2021-12-29 08:52 | Outpatient (CLI) | payer OTHER, SELFPAY ==
--- NOTE | 2021-12-29 08:55 | XR_ITS ---
FINAL REPORT TECHNIQUE: Bone mineral density was calculated of the lumbar spine and hip. CLINICAL HISTORY: . post menopausal screening FINDINGS: Using L1-4, the bone mineral density of the spine is 1.226 g/cm2, corresponding to T-score of 1.6. Using the right hip, the bone mineral density of the femoral neck is 0.671 g/cm2, corresponding to a T-score of -1.6. NOTE: T-score: Standard deviation compared with peak bone mass of young adult mean. *Following the recommendations of the International Society of Bone densitometry, classification of hip BMD is based on the lower of two T-scores; total hip or femoral neck. IMPRESSION: Diminished bone mineral density of the right hip consistent with osteopenia. Normal bone mineral density of the lumbar spine. Lumbar spine measurements may be falsely elevated secondary to hypertrophic change. FRAX data: 10 year fracture risk of major osteoporotic fracture 8.4%. Reviewed, Interpreted and Dictated by Jaren Schaefer III, MD Transcribed by Tyrone Hernández Authenticated by Jaren Schaefer III, MD on 12/29/2021 10:17:[address] [facility]
== END ==
PROVIDERS: PCP Family Medicine; Visit Provider Family Medicine
DX: Z78.0 Asymptomatic menopausal state (principal)
CPT/HCPCS: 77080

== ENCOUNTER → 2022-03-28 15:23 | Outpatient (CLI) | payer OTHER, SELFPAY ==
--- NOTE | 2022-03-28 15:27 | XR_ITS ---
FINAL REPORT CLINICAL HISTORY: LT HIP PAIN FINDINGS: 2 views of the left hip and an AP pelvis were obtained. There is no acute fracture or dislocation. There are mild degenerative changes of both hips. There are no soft tissue abnormalities. IMPRESSION: Mild degenerative change. Reviewed, Interpreted and Dictated by Jaren Schaefer III, MD Transcribed by Tyrone Hernández Authenticated and [facility]
--- NOTE | 2022-03-28 15:27 | XR_ITS ---
FINAL REPORT CLINICAL HISTORY: LT HIP PAIN FINDINGS: 5 views of the lumbar spine were obtained. There is a moderate chronic T12 compression fracture. There is mild anterolisthesis of L4 on L5. There is moderate to severe degenerative change. Vacuum phenomenon is seen at L3-L4 and L5-S1. There is rightward curvature. There is a probable small right renal stone. IMPRESSION: Moderate to severe degenerative change. Probable small right renal stone. Reviewed, Interpreted and Dictated by Jaren Schaefer III, MD Transcribed by Tyrone Hernández Authenticated and . [facility]
== END ==
PROVIDERS: PCP Family Medicine; Visit Provider Family Medicine
DX: M54.50 Low back pain, unspecified (principal); M25.552 Pain in left hip
CPT/HCPCS: 72110; 73502

== ENCOUNTER → 2022-05-01 08:15 | Outpatient (POV) | payer OTHER, SELFPAY ==
[2022-05-01 08:28] VITALS: BP 137/89; PULSE 68; RESP 18; TEMP 36.8; O2SAT 98; BMI 30.4
--- NOTE | 2022-05-01 08:58 | EXP.PAIN.OV ---
HPI Data of Consult Patient: new to practice Consult date: 05/01/22 Requesting Physician: Debora Guerra APRN Primary Care Provider: Enrique Valdes MD Consult Narrative Reason for consult: Low back pain, left hip pain History of present illness: Ms. Gottlieb is a 62 year old female who presents today as a new patient. She is a referral from Kavin Valdes's office. Today she rates her pain an 8 out of 10 and states it is primarily in her left hip with occasional radiating symptoms into her bilateral lower extremities. Patient describes this as a stiff, achy sensation that is worse with increased activity. Patient states she does get some relief with at home stretching and Motrin use. She states this has been going on for the last 6 months. Patient denies any new trauma or injury to the site. Patient states about a year and a half ago she had a similar pain in her right hip and stated she had imaging done that did also show a large kidney stone and osteoarthritis. Patient states the pain in her right hip did resolve. 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 Patient has been prescribed meloxicam in the past that did provide some relief of her symptoms. Patient does use a cane for ambulation as needed. Patient has also tried [id number] Biofreeze and Salonpas that provided some relief however short-term. Patient is also tried massage and a chiropractor in the last 3 months with no relief of her symptoms. Patient uses heat and ice with minimal improvement of her symptoms. Patient has seen physical therapy about 3 to 4 years ago for an unrelated issue of a cardiac stent. Patient is not currently on any scheduled medications. Her Mor is [phone]. It is been reviewed and appropriate. CC: Debora Guerra APRN [facility] Medical History (Updated 05/01/22 @ 09:06 by Debora Guerra APRN) Arthritis CAD (coronary artery disease) Diabetes HLD (hyperlipidemia) HTN (hypertension) Kidney stone UTI (urinary tract infection) Surgical History (Updated 05/01/22 @ 08:37 by Mira Duenas RN) H/O colonoscopy H/O gastric bypass H/O knee surgery Social History Smoking Status: Never smoker second hand exposure: No alcohol intake: never substance use type: denies use current occupational status: employed Travel in the last 8 weeks: None household members: spouse housing: house current occupational exposures/hazards: Yes caffeine: Yes Review of Systems Review of Systems Review of systems:: pertinent systems reviewed and negative unless documented below Review of systems (narrative): Review of Systems: General: No recent weight changes, no fever, no sleep disturbances Respiratory: No cough, no shortness of air, no recurring pulmonary infections Cardiovascular/peripheral vascular: No chest pain, no palpitations, no edema, no shortness of breath Gastrointestinal: No new onset incontinence, normal bowel movements reported Genitourinary: No new onset incontinence Musculoskeletal: Low back pain, left hip pain Psychiatric: [Normal mood/affect] Neurological: [Denies weakness in extremities], [denies balance issues] Meds Home Medications and Allergies Home Medications Medication Instructions Recorded Confirmed Type aspirin 81 mg tablet,delayed 81 mg PO DAILY heart. 12/03/17 05/01/22 History release multivitamin 1 tab PO QAM Supplement 12/03/17 05/01/22 History atorvastatin 40 mg tablet 40 mg PO DAILY Cholesterol #30 tabs 12/08/20 05/01/22 Rx metformin 850 mg tablet 850 mg PO DAILY Diabetes 02/22/21 05/01/22 History nitroglycerin 0.4 mg sublingual 0.4 mg sublingual Q5M PRN Chest 02/22/21 05/01/22 History tablet Pain metoprolol succinate 25 mg 25 mg PO DAILY heart 02/24/21 05/01/22 History tablet,extended release 24 hr losartan 25 mg tablet See Rx Instructions .Route 12/20/21 05/01/22 History .COMPLEX High blood p
== END ==
PROVIDERS: PCP Family Medicine; Visit Provider Nurse Practitioner Family
DX: M51.36 Other intervertebral disc degeneration, lumbar region (principal); M16.12 Unilateral primary osteoarthritis, left hip
CPT/HCPCS: 99202; G0463

== ENCOUNTER → 2022-05-09 11:09 | Outpatient (POV) | payer OTHER, SELFPAY ==
[2022-05-09 11:35] VITALS: BP 131/79; PULSE 65; RESP 18; TEMP 36.6; O2SAT 99; BMI 30.4
[2022-05-09 12:00] VITALS: BP 131/79; PULSE 65; RESP 20; O2SAT 99; BMI 30.4
--- NOTE | 2022-05-09 12:54 | EXP.PAIN.SOA ---
[facility] Pain Management SOAP Note Subjective:: This patient is a pleasant 62-year-old female that comes to our injection clinic today for a scheduled left intra-articular hip injection. However, patient interested in having intra-articular hip injection. She does not feel this is necessary. In fact, she is not really interested in any type of injection today. After further discussion with the patient it seems she has chronic low back pain as well as left hip radicular symptoms. Patient does say her left radicular symptoms go to the knee however not below the knee. Patient rates her low back pain today 10/20. Patient states she actually had to use a cane a couple of weeks ago because her left hip and leg pain was severe. However, she states today that pain has improved significantly. I discussed in detail with her regarding lumbar epidural steroid injection for low back pain as well as left hip and leg pain. Patient's lumbar x-ray on 03/28/2022 shows degenerative disc L3-4, L4-5, L5-S1. Patient had a similar x-ray done in 2019 with similar pathology. I think it is possible her low back pain as well as left hip and leg radicular symptoms are coming from the low back. Patient states she is going on vacation and May 22 and will be doing a lot of walking sitting and standing. She request lumbar epidural steroid injection prior to departure. Objective:: Patient is awake alert [place] x3. In no acute distress. Flexion-extension lumbar spine somewhat guarded secondary to pain. Deep tendon reflexes upper and lower extremities normal. Motor strength upper and lower extremities normal. There is no gross sensory deficit. Gait is normal. Assessment:: Degenerative disc disease lumbar spine multilevels. Lumbar radiculopathy symptoms. Plan:: We will plan lumbar epidural steroid injection at the L4-5 level. [facility] Medical History Arthritis CAD (coronary artery disease) Diabetes HLD (hyperlipidemia) HTN (hypertension) Kidney stone UTI (urinary tract infection) Surgical History H/O colonoscopy H/O gastric bypass H/O knee surgery Family History (Updated 05/09/22 @ 11:36 by Amanda Pardo RN) Other No significant family history Social History (Updated 05/09/22 @ 11:36 by Amanda Pardo RN) Smoking Status: Never smoker second hand exposure: No alcohol intake: never substance use type: denies use current occupational status: other Travel in the last 8 weeks: None household members: spouse housing: house current occupational exposures/hazards: Yes caffeine: Yes
== END ==
PROVIDERS: PCP Family Medicine; Visit Provider Nurse Anesthetist, Certified Registered
DX: M51.16 Intervertebral disc disorders with radiculopathy, lumbar region (principal)
CPT/HCPCS: 99212; G0463

== ENCOUNTER 2022-06-13 09:17 | Day surgery (SDC) | payer OTHER, SELFPAY ==
[2022-06-13 09:27] VITALS: BP 115/70; PULSE 72; RESP 16; TEMP 36.7; O2SAT 96; BMI 29.5
[2022-06-13 09:32] VITALS: BP 123/48; PULSE 73; RESP 18; O2SAT 98
[2022-06-13 09:35] VITALS: BP 123/48; PULSE 73; RESP 18; O2SAT 98
[2022-06-13 09:42] VITALS: BP 119/65; PULSE 66; RESP 18; O2SAT 97
--- NOTE | 2022-06-13 10:08 | EXP.PAIN.PRO ---
Procedure Date: 06/13/22 Time: 09:45 Anesthesiologist:: Dayday Hurtado CRNA Complications:: None Pre-procedure Diagnosis:: Degenerative disc disease lumbar spine multilevels. Lumbar radiculopathy. Post-procedure Diagnosis:: Same Indications for Procedure:: Patient is a pleasant 62-year-old female that comes our clinic today for lumbar epidural steroid injection of the L4-5 level. Patient states back pain is constant, dull, aching. She rates the pain 6/10. Patient also complaining of bilateral hip and leg radicular symptoms at times Procedure Details:: Procedure: Lumbar epidural steroid injection under fluoroscopy Informed consent was obtained and the risks and benefits of the procedure were explained to the patient. The patient was taken to the procedure room and noninvasive monitors placed, including noninvasive blood pressure cuff and pulse oximeter. The back was viewed using C-arm Fluoroscopy and prepped using Chloraprep as a cleansing solution and the L4-L5 interspace was palpated. Skin and subcutaneous tissues were anesthetized using lidocaine 1.5% and a 25-gauge needle. After this, an 18-gauge Touhy epidural needle was placed into the L4-L5 interspace and advanced using fluoroscopic guidance and loss of resistance to air until the epidural space was encountered. After confirmation of needle placement in the epidural space, with dye, a solution containing normal saline, 3 mL and Depo-Medrol 80 mg were incrementally injected into the lumbar epidural space. The patient tolerated the procedure well with no complications. The patient was observed in the Pain Clinic and then discharged home neurologically intact. Plan and Disposition:: Patient was discharged without incident.
== END 2022-06-13 09:42 | disposition home or self-care (01) ==
LOC: SC.PAINP 09:18
PROVIDERS: PCP Family Medicine; Visit Provider Nurse Anesthetist, Certified Registered
DX: M51.16 Intervertebral disc disorders with radiculopathy, lumbar region (principal)
CPT/HCPCS: 62323; J1040

== ENCOUNTER → 2022-07-03 10:19 | Outpatient (POV) | payer OTHER, SELFPAY ==
[2022-07-03 10:43] VITALS: BP 124/67; PULSE 69; RESP 18; O2SAT 98; BMI 29.5
--- NOTE | 2022-07-03 11:19 | EXP.PAIN.SOA ---
[facility] Pain Management SOAP Note Subjective:: Patient is a pleasant 62-year-old female that presents today for follow-up of lumbar epidural steroid injection on 06/13/2022 at L4-L5. We are currently treating the patient for degenerative disc disease of lumbar spine multilevels with lumbar radiculopathy symptoms, hip pain. Today she rates her pain a 6 out of 10. She states the pain is all in her low back with radiating symptoms down her left leg. Patient states she did not notice significant improvements with the last lumbar epidural steroid injection. Patient states while she was getting this injection she did feel a shooting sensation along her right side. Patient states her left side has always been her more prominent side that caused issues. Patient states this has been going on for over a year and worsened over time. Patient states that she has lost approximately 50 pounds over several months and has had some improvement with that weight loss. Patient states that previously she walked with a cane and has had moments where she is done better and not needed this assistive device. Patient states that previous x-rays done by Dr. Reeder's office of her bilateral hips and knees showed extensive arthritis. Patient states that she previously did water aerobics and exercise several months ago and was able to no longer use the cane. Patient states over time she ended up requiring this assistive device again however following this injection she states she is no longer needing it. Patient states she continues to take [id number] Motrin and use ice to provide some relief of her symptoms. Patient denies any new trauma or injury. Patient denies any change to location or type of pain she experiences. Patient is not on any scheduled medications. Her Mor is [id number]. It is been reviewed and appropriate. Review of Systems: General: No recent weight changes, no fever, no sleep disturbances Respiratory: No cough, no shortness of air, no recurring pulmonary infections Cardiovascular/peripheral vascular: No chest pain, no palpitations, no edema, no shortness of breath Gastrointestinal: No new onset incontinence, normal bowel movements reported Genitourinary: No new onset incontinence Musculoskeletal: Low back pain, left leg pain, left hip pain Psychiatric: [Normal mood/affect] Neurological: [Denies weakness in extremities], [denies balance issues] Objective:: Physical Exam: General: Alert and oriented x3, no acute distress, pleasant and cooperative Lungs: Respirations even and unlabored, symmetrical chest expansion Eyes: PERRL Musculoskeletal: Flexion and extension of lumbar [spine] somewhat guarded secondary to pain, [antalgic gait noted] Neurological: Speech clear, no gross sensory deficit Assessment:: Degenerative disc disease of lumbar spine multilevels with lumbar radiculopathy symptoms, hip pain Plan:: Patient is experiencing significant pain in her low back with radiating symptoms down her left leg. Patient did have limited range of motion of her lumbar spine during today's visit. I have counseled the patient that she may benefit from a diagnostic transforaminal epidural steroid injection. Risk and benefits were discussed with the patient. She would like to proceed forward with this plan of care. She is not on any blood thinners. We will schedule her for a left transforaminal epidural steroid injection L4-L5 and L5-S1. Patient has been instructed to contact the clinic with any concerns before the next appointment. Dr. Odom has reviewed this note and agrees with this plan of care. This note was dictated using voice recognition software and make contain errors or omissions. [facility] Medical History Arthritis CAD (coronary artery disease) Diabetes HLD (hyperlipidemia) HTN (hypertension) Kidney stone UTI (urinary tract infection) Surgical History (Reviewed 06/13/22 @ 09:27 by Amanda
== END ==
PROVIDERS: PCP Family Medicine; Visit Provider Nurse Practitioner Family
DX: M51.16 Intervertebral disc disorders with radiculopathy, lumbar region (principal); M25.559 Pain in unspecified hip
CPT/HCPCS: 99212; G0463

== ENCOUNTER 2022-07-11 14:29 | Day surgery (SDC) | payer OTHER, SELFPAY ==
[2022-07-11 14:43] VITALS: BP 143/85; PULSE 66; RESP 18; TEMP 36.6; O2SAT 99; BMI 29.5
[2022-07-11 14:58] VITALS: BP 146/79; PULSE 62; RESP 18; O2SAT 98
[2022-07-11 14:59] VITALS: BP 146/79; PULSE 62; RESP 18; O2SAT 98
--- NOTE | 2022-07-11 15:05 | EXP.PAIN.PRO ---
Procedure Date: 07/11/22 Time: 15:00 Anesthesiologist:: Dayday Hurtado CRNA Complications:: None Pre-procedure Diagnosis:: Lumbar back pain. Left hip pain. Post-procedure Diagnosis:: Same Indications for Procedure:: Patient is a pleasant 62-year-old female comes our clinic today for left L4-5, L5-S1 transforaminal epidural steroid injection. Today, patient denies any left leg radicular pain. We will proceed with 1 level L4-5 transforaminal epidural steroid injection. Discussed with the patient. She agrees. Procedure Details:: Details of the procedure were explained to the patient. The patient taken the procedure room placed in the prone position. The area over the lumbar spine was cleaned using chlorhexidine as a cleansing solution. Using fluoroscopy guidance a 22-gauge 3-1/2 inch needle was used to access the left upper one third of the L4-5 vertebral foramen. Needle position was confirmed using fluoroscopy and a lateral and AP view after negative aspiration 1 cc of 1% lidocaine and 20 mg of Depo-Medrol was injected. Patient tolerated the procedure without difficulty. There are no complications. Plan and Disposition:: Patient was discharged without incident
[2022-07-11 15:09] VITALS: BP 130/78; PULSE 68; RESP 20
== END 2022-07-11 15:11 | disposition home or self-care (01) ==
PROVIDERS: PCP Family Medicine; Visit Provider Nurse Anesthetist, Certified Registered
DX: M51.16 Intervertebral disc disorders with radiculopathy, lumbar region (principal); M25.552 Pain in left hip
CPT/HCPCS: 64483; 64484; J1030

== ENCOUNTER → 2022-07-31 13:35 | Outpatient (POV) | payer OTHER, SELFPAY ==
[2022-07-31 14:03] VITALS: BP 110/63; PULSE 82; RESP 18; O2SAT 98; BMI 29.5
--- NOTE | 2022-07-31 15:33 | EXP.PAIN.SOA ---
[facility] Pain Management SOAP Note Subjective:: Patient is a pleasant 63-year-old female who presents today for follow-up. Patient is currently treated for degenerative disc disease lumbar spine with lumbar radiculopathy symptoms, hip pain. We have been managing this patient with injective therapy. She has had a lumbar epidural steroid injection on 06/13/2022 and a left transforaminal epidural steroid injection on 07/11/2022. She states that the lumbar epidural steroid injection provided more relief than the latter one. She states that she had worsening pain after her left transforaminal injection. Today, patient states that she still have some pain going down her left lower extremity. Describes his pain as constant, achy, dull. She cannot tolerate any prolonged sitting, standing, and walking. She does stay active. She teaches a water aerobics class. She has lost over 50 pounds in the last several months as well. She states that her hip pain is tolerable. She does not think injections would help her very much. For pain, she takes Motrin as needed. [facility] [id number]. Review of Systems: General: No recent weight changes, no fever, no sleep disturbances Respiratory: No cough, no shortness of air, no recurring pulmonary infections Cardiovascular/peripheral vascular: No chest pain, no palpitations, no edema, no shortness of breath Gastrointestinal: No new onset incontinence, normal bowel movements reported Genitourinary: No new onset incontinence Musculoskeletal: Low back pain, hip pain Psychiatric: [Normal mood/affect] Neurological: [Denies weakness in extremities], [denies balance issues] Objective:: Physical Exam: General: Alert and oriented x3, no acute distress, pleasant and cooperative Lungs: Respirations even and unlabored, symmetrical chest expansion Eyes: PERRL Musculoskeletal: Flexion and extension of lumbar [spine] somewhat guarded secondary to pain, [antalgic gait noted]; left SI is positive for JOHN PAUL, Collin's, Kevin's, Gaenslen's, compression, and distraction. Neurological: Speech clear, no gross sensory deficit Assessment:: Sacroiliitis, degenerative disc disease of the lumbar spine with lumbar radiculopathy symptoms Plan:: Patient wants to hold off on any injections at this time. I do believe that she might benefit from a left SI injection. She states that her pain is tolerable. We will follow-up with the patient in 3 months. I will start the patient on tramadol 50 mg daily #30 tabs for breakthrough pain/ Patient has been instructed to contact the clinic with any concerns before the next appointment. Dr. Odom has reviewed this note and agrees with this plan of care. This note was dictated using voice recognition software and make contain errors or omissions. [facility] Disclaimer: The information contained in this section may have been updated after the patient was seen, as this information can be updated by other users. Medical History Arthritis CAD (coronary artery disease) Diabetes HLD (hyperlipidemia) HTN (hypertension) Kidney stone UTI (urinary tract infection) Surgical History H/O colonoscopy H/O gastric bypass H/O knee surgery Family History Other No significant family history Social History Smoking Status: Never smoker second hand exposure: No alcohol intake: never substance use type: denies use current occupational status: employed Travel in the last 8 weeks: None household members: spouse housing: house current occupational exposures/hazards: Yes caffeine: Yes
== END | disposition home or self-care (01) ==
PROVIDERS: PCP Family Medicine; Visit Provider Student in an Organized Health Care Education/Training Program
DX: M51.16 Intervertebral disc disorders with radiculopathy, lumbar region (principal)
CPT/HCPCS: 99212; G0463

== ENCOUNTER → 2022-11-21 10:12 | Outpatient (CLI) | payer OTHER, SELFPAY ==
--- NOTE | 2022-11-21 10:20 | XR_ITS ---
FINAL REPORT CLINICAL HISTORY: COUGH, has knot on left side near clavicle FINDINGS: Two views of the chest were obtained. The heart size and pulmonary vascularity are within normal limits. The mediastinum is normal. No acute pulmonary abnormality is identified. There is no pneumothorax. The bony thorax is intact. There is a small hiatal hernia. IMPRESSION: No active cardiopulmonary disease. Reviewed, Interpreted and Dictated by Jaren Schaefer III, MD Transcribed by Haley Guerrier Authenticated and [facility]
== END ==
PROVIDERS: PCP Family Medicine; Visit Provider Family Medicine
DX: R05.9 Cough, unspecified (principal); M89.312 Hypertrophy of bone, left shoulder
CPT/HCPCS: 71046

== ENCOUNTER → 2022-11-30 07:54 | Outpatient (CLI) | payer OTHER, SELFPAY ==
--- NOTE | 2022-11-30 07:58 | MM_ITS ---
PROCEDURE INFORMATION: Exam: MG Bilateral Screening 3D Mammography Exam date and time: 11/30/2022 7:55 AM Age: 62 years old Clinical indication: Screening mammogram TECHNIQUE: Imaging protocol: Bilateral Screening tomosynthesis and 2D mammography including computer-aided detection (CAD) when performed. COMPARISON: 1. MG MM DIG SCREENING MAMM BI W/CAD 11/24/2021 12:53 PM 2. MG MM DIG SCREENING MAMM BI W/CAD 11/22/2020 10:24 AM 3. MG MM DIG SCREENING MAMM BI W/CAD 09/15/2019 11:03 AM 4. MG SCBI MM Dig screening mamm BI w/CAD 07/18/2018 9:39 AM FINDINGS: MAMMOGRAPHY: Breast composition: There are scattered areas of fibroglandular density. Mass: None. Architectural distortion: No new or suspicious architectural distortion. Calcifications: Stable benign-appearing calcifications are present. No new or suspicious cluster of microcalcifications have developed. Asymmetric density: No new or suspicious asymmetric density is present Skin thickening: None. Axillary adenopathy: None. IMPRESSION: No mammographic evidence of malignancy. Recommend annual screening mammography unless otherwise clinically indicated. ASSESSMENT: BI-RADS category 2: Benign
== END ==
PROVIDERS: PCP Family Medicine; Visit Provider Family Medicine
DX: Z12.31 Encounter for screening mammogram for malignant neoplasm of breast (principal)
CPT/HCPCS: 77063; 77067

== ENCOUNTER → 2023-02-26 11:04 | Outpatient (POV) | payer OTHER, SELFPAY ==
[2023-02-26 11:28] VITALS: BP 140/81; PULSE 75; RESP 18; O2SAT 98; BMI 30.5
--- NOTE | 2023-02-26 11:45 | EXP.PAIN.SOA ---
[facility] Pain Management SOAP Note Subjective:: Patient is a pleasant [id number]-year-old female who presents today for follow-up. We are currently treating the patient for degenerative disc disease of lumbar spine with lumbar radiculopathy symptoms, hip pain. Today she rates her pain a 4 out of 10. She states that she recently had a flareup of her left buttock/hip pain however she was unable to get into our office for 2 weeks and currently she is not experiencing the pain like she was. Patient did state this was a aching sensation that was worse with increased activity and did radiate into her left buttocks. She did state the pain interferes with her ability to perform activities of daily living such as cooking and cleaning. She states that she noticed the pain was not as bothersome while she would do water aerobics however going up stairs or getting out of a chair cause significant pain. She does take extra strength Tylenol arthritis [id number]. She does state that she did go to the chiropractor when her symptoms initially flared up and it did seem to provide additional relief. Patient has had these flareups multiple times typically lasting only 2 to 3 days. Her Mor is [id number]. Its been reviewed and appropriate. Review of Systems: General: No recent weight changes, no fever, no sleep disturbances Respiratory: No cough, no shortness of air, no recurring pulmonary infections Cardiovascular/peripheral vascular: No chest pain, no palpitations, no edema, no shortness of breath Gastrointestinal: No new onset incontinence, normal bowel movements reported Genitourinary: No new onset incontinence Musculoskeletal: Left buttocks pain Psychiatric: [Normal mood/affect] Neurological: [Denies weakness in extremities], [denies balance issues] Objective:: Physical Exam: General: Alert and oriented x3, no acute distress, pleasant and cooperative Lungs: Respirations even and unlabored, symmetrical chest expansion Eyes: PERRL Musculoskeletal: Flexion and extension of lumbar [spine] somewhat guarded secondary to pain, [antalgic gait noted] Neurological: Speech clear, no gross sensory deficit Assessment:: Degenerative disc disease of lumbar spine with lumbar radiculopathy symptoms, hip pain Plan:: Patient did recently have a flareup of her low back/left buttocks pain however currently as she is not experiencing the continued symptoms. I have recommended that she may benefit from repeat left transforaminal epidural due to her moderate to severe degenerative changes most notably at L3-L4 and L5-S1 or even a caudal epidural. I have counseled the patient that in the future she can call our office and schedule an injection over the phone. Patient has tried and failed conservative therapy such as oral medications, heat and ice and topicals along with at home exercising and stretching daily with water aerobics therapy. I have also counseled the patient that if she does call to submit for this insurance we can send in a few days of oral steroids until we can get her in for the injection. Patient has been instructed to contact the clinic with any concerns before the next appointment. Dr. Odom has reviewed this note and agrees with this plan of care. This note was dictated using voice recognition software and make contain errors or omissions. [facility] Disclaimer: The information contained in this section may have been updated after the patient was seen, as this information can be updated by other users. Medical History Arthritis CAD (coronary artery disease) Diabetes HLD (hyperlipidemia) HTN (hypertension) Kidney stone UTI (urinary tract infection) Surgical History H/O colonoscopy H/O gastric bypass H/O knee surgery BILATERAL Family History Other No significant family history Social History (Enio
== END ==
PROVIDERS: Visit Provider Nurse Practitioner Family
DX: M51.16 Intervertebral disc disorders with radiculopathy, lumbar region (principal); M25.559 Pain in unspecified hip
CPT/HCPCS: 99212; G0463

== ENCOUNTER 2023-05-01 08:49 | Day surgery (SDC) | payer OTHER, SELFPAY ==
[2023-05-01 09:08] VITALS: BP 139/79; PULSE 57; RESP 18; TEMP 36.7; O2SAT 99
--- NOTE | 2023-05-01 09:18 | EXP.PAIN.PRO ---
Procedure Date: 05/01/23 Time: 09:00 Anesthesiologist:: Dayday Hurtado CRNA Complications:: None Pre-procedure Diagnosis:: Degenerative disc lumbar spine multilevels. Lumbar radiculopathy. Lumbar disc bulge L3-4, L4-5. Post-procedure Diagnosis:: Same. Indications for Procedure:: Patient is a very pleasant 63-year-old female comes our clinic today for a left L3-4 and L4-5 transforaminal epidural steroid injection. Patient describes low left lumbar back pain as well as left hip pain as constant, dull, aching. She rates her pain 7/10. Procedure Details:: Details of the procedure were explained to the patient. The patient was taken the procedure room placed in the prone position. The area of the lumbar spine was cleansed using chlorhexidine as a cleansing solution. At this time using fluoroscopy guidance markers were placed on the left lateral border of the L3 and L4 vertebral body. The skin and subcutaneous tissue was anesthetized using 1% lidocaine and 25-gauge needle. At this time using a 22-gauge 3-1/2 inch spinal needle the left upper one third of the L4-5 foramen was accessed. The same was done at the left L5-S1 foramen. Needle positions were confirmed and a lateral view using fluoroscopy and contrast dye. At this time 1 cc of 1% lidocaine +20 mg of Depo-Medrol was injected at each level after negative aspiration. [place] were removed. Band-Aid applied. Patient tolerated the procedure without difficulty. There are no complications. Plan and Disposition:: Patient was discharged without incident.
[2023-05-01 09:32] VITALS: BP 149/86; PULSE 56; RESP 16; O2SAT 99
[2023-05-01 09:36] VITALS: BP 131/71; PULSE 59; RESP 18; O2SAT 97
[2023-05-01 09:37] VITALS: BP 131/71; PULSE 59; RESP 18; O2SAT 97
== END 2023-05-01 09:32 | disposition home or self-care (01) ==
PROVIDERS: PCP Family Medicine; Visit Provider Nurse Anesthetist, Certified Registered
DX: M51.16 Intervertebral disc disorders with radiculopathy, lumbar region (principal)
CPT/HCPCS: 64483; 64484; J1030

== ENCOUNTER → 2023-05-10 11:33 | Outpatient (CLI) | payer OTHER, SELFPAY | PROVIDERS: PCP Family Medicine; Visit Provider Ophthalmology | DX: H47.22 Hereditary optic atrophy (principal) | CPT/HCPCS: 36415 ==

== ENCOUNTER → 2023-05-21 09:22 | Outpatient (POV) | payer OTHER, SELFPAY ==
[2023-05-21 09:53] VITALS: BP 132/83; PULSE 68; RESP 20; BMI 30.5
--- NOTE | 2023-05-21 10:55 | EXP.PAIN.SOA ---
[facility] Pain Management SOAP Note Subjective:: This patient is a very pleasant 63-year-old female comes our clinic today for follow-up visit after receiving a left L3-4 and L4-5 transforaminal epidural steroid injection. Patient reports minimal to no relief from the injection. She is continuing to complain of left posterior hip pain. Low lumbar back pain. Patient is having difficulty transitioning from sitting to standing. She has difficulty with ambulation secondary to left posterior hip pain. She rates the pain 7/10. Upon examination the patient has extreme point tenderness over the left sacroiliac joint. She has positive Sim's test. Positive Gaenslen's test. Positive left sacroiliac joint compression test. Patient is tried and failed physical therapy as well as continuing to take NSAIDs with minimal relief. I discussed in detail with the patient regarding left sacroiliac joint injection. We talked extensively regarding the injection, expectations, outcomes. Answered her questions. She wishes to proceed. Patient having difficulty doing daily tasks such as laundry, vacuuming, light yard work. Objective:: Patient is awake alert [place] x3. In no acute distress. Flexion-extension lumbar spine somewhat guarded secondary to pain. Deep tendon reflexes upper and lower extremities normal. Motor strength upper and lower extremities normal. There is no gross sensory deficit. Gait is normal. Assessment:: Left sacroiliitis. Degenerative disc disease lumbar spine multilevels. Lumbar radicular pain. Plan:: We will plan left sacroiliac joint injection. Again, I discussed in detail with the patient regarding treatment options. Answered her questions. She wishes to proceed. Patient's Mor #[id number] has been reviewed and appropriate. [facility] Disclaimer: The information contained in this section may have been updated after the patient was seen, as this information can be updated by other users. Medical History Arthritis CAD (coronary artery disease) Diabetes HLD (hyperlipidemia) HTN (hypertension) Kidney stone UTI (urinary tract infection) Surgical History H/O colonoscopy H/O gastric bypass H/O knee surgery BILATERAL Family History Other No significant family history Social History Smoking Status: Never smoker second hand exposure: No alcohol intake: never substance use type: denies use current occupational status: other Travel in the last 8 weeks: None household members: spouse housing: house current occupational exposures/hazards: Yes caffeine: Yes
== END ==
PROVIDERS: PCP Family Medicine; Visit Provider Nurse Anesthetist, Certified Registered
DX: M46.1 Sacroiliitis, not elsewhere classified (principal); M51.16 Intervertebral disc disorders with radiculopathy, lumbar region
CPT/HCPCS: 99212; G0463

== ENCOUNTER 2023-06-05 08:27 | Day surgery (SDC) | payer OTHER, SELFPAY ==
[2023-06-05 08:44] VITALS: BP 127/78; PULSE 83; RESP 16; TEMP 36.9; O2SAT 98; BMI 30.2
[2023-06-05 09:04] VITALS: BP 146/90; PULSE 68; RESP 18; O2SAT 98
[2023-06-05 09:07] VITALS: BP 126/72; PULSE 75; RESP 18; O2SAT 97
[2023-06-05 09:13] VITALS: BP 126/72; PULSE 75; RESP 18; O2SAT 97
--- NOTE | 2023-06-05 09:28 | EXP.PAIN.PRO ---
Procedure Date: 06/05/23 Time: 08:55 Anesthesiologist:: Dayday Hurtado CRNA Complications:: None Pre-procedure Diagnosis:: Left sacroiliitis. Post-procedure Diagnosis:: Same. Indications for Procedure:: Patient is a very pleasant 63-year-old female comes our clinic today for a left sacroiliac joint injection. Patient has extreme point tenderness upon examination over the left sacroiliac joint. She reports low left lumbar back pain as well as left posterior hip pain. Patient also has difficulty with transitioning from sitting to standing. Difficulty lying on her left side secondary to pain. She rates her pain 8/10. Procedure Details:: Procedure: Left sacroiliac injection under fluoroscopy Informed consent was obtained and the risk and benefits of the procedure were explained to the patient.~ The patient was taken to the procedure room and noninvasive monitors were placed including noninvasive blood pressure cuff and pulse oximeter.~ The patient was placed prone on the procedure table.~ The~ left hip was cleansed using Betadine as a cleansing solution.~ C-arm fluorosocpy was used to view the left SI joint.~ The skin and subcutaneous tissues were anesthetized using Lidocaine 1.5% and a 25-gauge needle.~ After this, a 22-gauge spinal needle was inserted under fluoroscopic guidance into the inferior aspect of the left SI joint.~ Omnipaque dye was injected and a good spread was seen throughout the joint.~ After this, approximately 5 mL of bupivacaine 0.25% and Depo-Medrol 40 mg was incrementally injected into the sacroiliac joint.~ The patient tolerated the procedure well with no complications.~ The patient was observed in the Pain Clinic for a period of 30-45 minutes, then discharged home neurologically intact.~ Plan and Disposition:: Patient was discharged without incident.
== END 2023-06-05 09:04 | disposition home or self-care (01) ==
PROVIDERS: PCP Family Medicine; Visit Provider Nurse Anesthetist, Certified Registered
DX: M46.1 Sacroiliitis, not elsewhere classified (principal)
CPT/HCPCS: 27096; G0260; J1040

== ENCOUNTER → 2023-06-18 13:03 | Outpatient (POV) | payer OTHER, SELFPAY ==
--- NOTE | 2023-06-18 13:34 | EXP.PAIN.SOA ---
[facility] Pain Management SOAP Note Subjective:: Patient is a pleasant 63-year-old female who presents today for follow-up of left SI injection on 06/05/2023. We are currently treating the patient for degenerative disc disease of lumbar spine with lumbar radiculopathy symptoms, sacroiliitis, right hip pain. Today she rates her pain an 8 out of 10. Patient states the SI injection was no help whatsoever. She states she noticed no improvement from the time she got up off the table to nail. Patient denies any new injury or trauma. She states she continues to have low back pain that does go into her right buttocks. Patient states that she has been to the chiropractor and that it will help that they typically use a TENS unit for temporary relief. She states in the past she did purchase a TENS unit however she never ended up using it. Patient has tried cyjj-cis-efswvya medications such as Tylenol and NSAIDs. She does state that Motrin does provide significant improvement however she does not take this on a regular basis. Patient does have a history of heart stents in the past. Patient has tried tramadol in the past and Lortab. Her Mor has been reviewed and is appropriate. Review of Systems: General: No recent weight changes, no fever, no sleep disturbances Respiratory: No cough, no shortness of air, no recurring pulmonary infections Cardiovascular/peripheral vascular: No chest pain, no palpitations, no edema, no shortness of breath Gastrointestinal: No new onset incontinence, normal bowel movements reported Genitourinary: No new onset incontinence Musculoskeletal: Low back pain, right buttocks pain Psychiatric: [Normal mood/affect] Neurological: [Denies weakness in extremities], [denies balance issues] Objective:: .Physical Exam: General: Alert and oriented x3, no acute distress, pleasant and cooperative Lungs: Respirations even and unlabored, symmetrical chest expansion Eyes: PERRL Musculoskeletal: Flexion and extension of lumbar [spine] somewhat guarded secondary to pain, [antalgic gait noted] Neurological: Speech clear, no gross sensory deficitthe patient I Assessment:: Degenerative disc disease of lumbar spine with lumbar radiculopathy symptoms, sacroiliitis, right hip pain Plan:: Patient continues to experience significant pain in her low back and right buttock/hip. I have discussed with the patient due to is trying multiple injections with minimal relief that she can always continue medications such as Tylenol arthritis and topical creams. I did discuss with the patient that I can order her compounded cream however she states she has tried these in the past. I have also discussed with the patient due to increased cost of the injections per patient that I have offered that we can always do injections in the future at the [facility] location. Patient will contact our office for her next follow-up visit. Patient has been instructed to contact the clinic with any concerns before the next appointment. Dr. Odom has reviewed this note and agrees with this plan of care. This note was dictated using voice recognition software and make contain errors or omissions. [facility] Disclaimer: The information contained in this section may have been updated after the patient was seen, as this information can be updated by other users. Medical History Arthritis CAD (coronary artery disease) Diabetes HLD (hyperlipidemia) HTN (hypertension) Kidney stone UTI (urinary tract infection) Surgical History H/O colonoscopy H/O gastric bypass H/O knee surgery BILATERAL Family History Other No significant family history Social History Smoking Status: Never smoker second hand exposure: No alcohol intake: never substance use type: denies use
[2023-06-18 13:52] VITALS: BP 121/72; PULSE 80; RESP 18; O2SAT 97; BMI 30.2
== END ==
PROVIDERS: Visit Provider Nurse Practitioner Family
DX: M51.16 Intervertebral disc disorders with radiculopathy, lumbar region (principal); M46.1 Sacroiliitis, not elsewhere classified; M25.551 Pain in right hip
CPT/HCPCS: 99212; G0463

== ENCOUNTER 2023-10-16 07:23 | Outpatient (CLI) | payer OTHER, SELFPAY ==
--- NOTE | 2023-10-16 | CA_ITS ---
APPROVED REPORT Exam: Pharmacologic Technologist: Diane Cole Ht: 5 ft 4 in Wt: 180 lbs BSA: 1.87 m2 HR: 59 bpm BP: 124/75 mmHg Rhythm: NSR Indications: Dyspnea Medical History Medications: Aspirin,,,,, Metoprolol,,,,, Metformin,,,,, Losartan,,,,, Atorvastatin,,,,, Stress Test Details Test: LEXISCAN HR Resting HR: 61 bpm Max Heart Rate (APMHR): 157 bpm Max HR Achieved: 102 bpm Target HR (85% APMHR): 133 bpm % of APMHR: 65 Recovery HR: 81 bpm BP Resting BP: 124/75 mmHg Max BP: 129/76 mmHg Recovery BP: 129.0/76.0 mmHg ECG Resting ECG: Sinus bradycardia Stress ECG: No significant ST changes Arrhythmia: None Clinical Exercise duration: 03:11 min Highest Stage Achieved: Exercise capacity: 1.0 METs Stress ECG Conclusion Symptoms: Nausea Arrhythmias/Ectopy: None ST-T Changes: None Conclusion: EKG portion unremarkable due to Lexiscan stress. Myoview images are reported separately. Test Summary REST . . . . . . . Resting REST 04:51 . . 61 . 124/ 75 . . Stage 1 . . . . . . . Myoview Injected Stage 1 01:00 . . 95 . . . . Stage 2 . . . . . . . Nausea Stage 2 01:00 . . 97 . 120/ 65 . . Stage 3 01:00 . . 82 . 117/ 69 . . Stage 4 00:11 . . 83 . . . Stop exercise at 03:11 RECOVERY 01:00 . . 81 . . . . RECOVERY 02:00 . . 82 . 120/ 70 . . RECOVERY 03:00 . . 80 . 120/ 70 . . RECOVERY 03:26 . . 82 . 129/ 76 . . Electronically signed by : Jenny Garcias MD 10/17/2023 13:27:48
--- NOTE | 2023-10-16 07:24 | NM_ITS ---
APPROVED REPORT Exam: Nuclear Stress Test Indication: SOB, Syncope, CAD, DM, High cholesterol, Family history Patient Location: Outpatient Stress Tech: Diane Cole NM Tech:Mari Lazaro, ARRT, RT (R)(N) Ht: 5 ft 4 in Wt: 178 lbs Bra Size: 44D HR: 61 bpm BP: 124/75 mmHg BSA: 1.86 m2 Rhythm: NSR TID: 1.23 BMI: 30.5 History: SOB, Syncope, CAD, DM, High cholesterol, Family history Procedure: Patient received 0.4 mg of intravenous Lexiscan, resting heart rate 61 bpm, resting blood pressure 124/75 mmHg, with Lexiscan maximum heart rate achieved was 102 bpm which is % of the maximum predicted heart rate and blood pressure was 129/76 mmHg. With Lexiscan, patient denied any complaint of chest pain. Cardiac Stress and Resting SPECT Images: Cardiac Stress and Resting SPECT images were obtained using technetium 99m Myoview 32.8 mCi stress and 10.33 mCi at rest. Resting and stress imaging and supine positions demonstrate no focal evidence of focal fixed or reversible perfusion defects. There is increased transient ischemic dilatation ratio (TID 1.23), suggestive of possible multivessel disease or balanced ischemia. Gated imaging demonstrates normal global and regional LV systolic function LVEF is calculated at 61%. Conclusion: no evidence of focal fixed or reversible perfusion defects. There is increased transient ischemic dilatation ratio (TID 1.23), suggestive of possible multivessel disease or balanced ischemia. Gated imaging demonstrates normal global and regional LV systolic function LVEF is calculated at 61%. Electronically signed by : Jenny Garcias MD 10/17/2023 13:29:43
[2023-10-16] MEDS: ISOTOPE MYOVIEW (PER STUDY) 1 DOSE IV (08:35)
[2023-10-16] MEDS: SODIUM CHLORIDE 0.9% 10ML SYR (RAD ONLY) 10 ML IV ×2 (08:35)
[2023-10-16] MEDS: REGADENOSON 0.4MG/5ML SYRINGE 0.400000000000000022 MG IV (08:35)
== END 2023-10-16 23:59 ==
LOC: RAD 07:24
PROVIDERS: PCP Family Medicine; Visit Provider Physician Assistant
DX: I11.9 Hypertensive heart disease without heart failure (principal); I25.10 Atherosclerotic heart disease of native coronary artery without angina pectoris; R06.00 Dyspnea, unspecified; R07.9 Chest pain, unspecified; R55 Syncope and collapse; E78.5 Hyperlipidemia, unspecified; E11.9 Type 2 diabetes mellitus without complications; Z79.84 Long term (current) use of oral hypoglycemic drugs
CPT/HCPCS: 78452; 93017; 93018; A9502; J2785

== ENCOUNTER 2023-11-02 11:09 | Day surgery (SDC) | payer OTHER, SELFPAY ==
[2023-11-02] VITALS (13 sets, daily range): BP systolic 106–154; BP diastolic 69–97; PULSE 57–98; RESP 14–20; TEMP 36.6; O2SAT 94–100; BMI 31.0
--- NOTE | 2023-11-02 07:04 | IR_ITS ---
APPROVED REPORT Patient Location: Outpatient PROCEDURES Left heart catheterization Left ventriculogram Selective coronary angiogram INDICATION Abnormal Myoview, Known coronary artery disease with history of stents Informed consent was obtained prior to the procedure. COMPLICATIONS NONE Estimated Blood Loss: LESS THAN 10 ML TECHNIQUE One percent lidocaine used to anesthetize the right anterior aspect of the wrist. The right radial artery was accessed via the Seldinger technique. A 6 Sammarinese sheath was placed in the right radial artery. 2.5 mg of Verapamil, 800 mcg of nitroglycerin, 1mg Lidocaine and 5000 U Heparin were given through the arterial sheath. The papa catheter was also used to perform left heart catheterization, left ventriculogram and selective coronary angiogram. At the end of the procedure the sheath was removed good hemostasis was achieved using Traclet band, patient was transferred to the postop holding area in stable condition. ANGIOGRAPHIC RESULTS The left main artery Normal The left anterior descending artery Has a stent in the proximal segment is widely patent with mild in-stent restenosis and excellent proximal distal transitioning. There is a large ramus intermedius which arises from the proximal LAD which is widely patent with mild luminal regularities The circumflex artery co-dominant with mild luminal irregularities The right coronary artery Codominant with 10% luminal irregularities The CLINE ventriculogram reveals Normal 65% The left ventricular end-diastolic pressure 10 mmHg IMPRESSION Widely patent proximal LAD stent as described above Normal ejection fraction Normal left ventricular end-diastolic pressure PLAN 1. Continue medical management Electronically signed by : Andrew Raygoza MD 11/02/2023 13:55:56
[2023-11-02 11:33] LABS: Chloride 107 mmol/L (98-107); Sodium 141 mmol/L (136-145)
[2023-11-02 11:34] LABS: Potassium 4.4 mmoL/L (3.5-5.1)
[2023-11-02 11:35] LABS: Basophils # 0.1 K/mm3 (0-0.2); Basophils % 1.5 % (0.1-2.0); Eosinophils # 0.4 K/mm3 (0.0-0.4); Eosinophils % 4.4 % (0.1-12.0); Hematocrit 44.8 % (37.0-47.0); Hemoglobin 14.2 g/dL (12.2-16.2); Lymphocytes # 2.5 K/mm3 (0.7-4.5); Lymphocytes % 29.7 % (10-50); Mean Corpuscular HGB Conc 31.8 g/dL (31.8-35.4); Mean Corpuscular Hemoglobin 31.1 pg (27.0-31.2); Mean Corpuscular Volume 97.8 fl (81-99); Monocytes # 0.3 K/mm3 (0.1-1.0); Monocytes % 4.1 % (1.7-9.3); Neutrophils % 60.4 % (37.0-80.0); Platelet Count 200 K/mm3 (142-424); Red Blood Count 4.58 M/mm3 (4.20-5.40); Red Cell Distribution Width 13.3 % (11.5-17.5); White Blood Count 8.3 K/mm3 (4.8-10.8)
[2023-11-02 11:37] LABS: Anion Gap 9.4 mEq/L (5-15); Blood Urea Nitrogen 16 mg/dl (7-17); Calcium 9.1 mg/dl (8.4-10.2); Carbon Dioxide 29 mmol/L (22.0-30.0); Creatinine Clearance Estimated 75 mL/min (50-200); Estimated Glomerular Filt Rate 85 ml/min (>60); GFR (African American) 102 ML/MIN (>60); Glucose 123 mg/dl (74-100)
[2023-11-02] MEDS: HEPARIN 1,000 UNITS/500ML NS (CATH LAB) 3000 UNIT IV (13:30)
[2023-11-02] MEDS: 0.9 % SODIUM CHLORIDE 500 ML 25 ML IV (13:31)
[2023-11-02] MEDS: VERAPAMIL 2.5MG/ML 2ML VIAL 2.5 MG IV (13:31)
[2023-11-02] MEDS: LIDOCAINE 1% 10ML MDV 20 ML IJ (13:31)
[2023-11-02] MEDS: diphenhydrAMINE 50MG/ML VIAL 50 MG IV (13:31)
[2023-11-02] MEDS: NITROGLYCERIN 800MCG/8ML SYR (CATH LAB) 800 MCG IA (13:31)
[2023-11-02] MEDS: HEPARIN 1,000 UNITS/ML 10ML VIAL (CATH LAB) 10000 UNIT IV (13:31)
[2023-11-02] MEDS: FENTANYL 100MCG/2ML VIAL 25 MCG IV (13:38)
[2023-11-02] MEDS: MIDAZOLAM HCL 1MG/1ML 5ML VIAL 1 MG IV ×2 (13:38→13:48)
[2023-11-02] MEDS: IOPAMIDOL-370 (76%);100ML BOTTLE 50 ML IV (14:09)
== END 2023-11-02 16:50 | disposition home or self-care (01) ==
LOC: CATHLAB 11:11
PROVIDERS: PCP Family Medicine; Visit Provider Internal Medicine
DX: I25.118 Atherosclerotic heart disease of native coronary artery with other forms of angina pectoris (principal); R93.1 Abnormal findings on diagnostic imaging of heart and coronary circulation; E11.69 Type 2 diabetes mellitus with other specified complication; I10 Essential (primary) hypertension; E78.2 Mixed hyperlipidemia; Z95.5 Presence of coronary angioplasty implant and graft; R55 Syncope and collapse; R06.02 Shortness of breath; Z79.84 Long term (current) use of oral hypoglycemic drugs; E11.9 Type 2 diabetes mellitus without complications; Z79.899 Other long term (current) drug therapy
CPT/HCPCS: 36415; 80048; 85025; 93458; 99152; C1725; C1769; J1644; Q9967

== ENCOUNTER 2023-12-11 15:44 | Outpatient (CLI) | payer OTHER, SELFPAY ==
--- NOTE | 2023-12-11 15:48 | MM_ITS ---
PROCEDURE INFORMATION: Exam: MG Bilateral Screening 3D Mammography Exam date and time: 12/11/2023 3:39 PM Age: 63 years old Clinical indication: Screening examination. TECHNIQUE: Imaging protocol: Bilateral Screening tomosynthesis and 2D mammography including computer-aided detection (CAD) when performed. COMPARISON: 1. MG MM DIG SCREENING MAMM BI W/CAD 11/30/2022 7:55 AM 2. MG MM DIG SCREENING MAMM BI W/CAD 11/24/2021 12:53 PM 3. MG MM DIG SCREENING MAMM BI W/CAD 11/22/2020 10:24 AM 4. MG MM DIG SCREENING MAMM BI W/CAD 09/15/2019 11:03 AM FINDINGS: MAMMOGRAPHY: Breast composition: There are scattered areas of fibroglandular density. Mass: None. Architectural distortion: None. Calcifications: No suspicious calcifications. Asymmetric density: None. Skin thickening: None. Axillary adenopathy: None. IMPRESSION: No mammographic evidence of malignancy. Annual screening is recommended unless otherwise clinically indicated. ASSESSMENT: BI-RADS Category 1: Negative
== END 2023-12-11 23:59 | disposition home or self-care (01) ==
LOC: RAD 15:44
PROVIDERS: PCP Family Medicine; Visit Provider Family Medicine
DX: Z12.31 Encounter for screening mammogram for malignant neoplasm of breast (principal)
CPT/HCPCS: 77063; 77067

== ENCOUNTER 2024-09-23 12:23 | Outpatient (CLI) | payer OTHER, SELFPAY ==
--- NOTE | 2024-09-23 12:31 | CA_ITS ---
APPROVED REPORT EXAM: Comprehensive 2D, Doppler, and color-flow Echocardiogram Medical Administrator: ZAK Napier, RVS Ht: 5 ft 4 in Wt: 178lbs BSA: 1.86 BP: 149/86 mmHg Indications: CAD-STENT, CP, HTN, DM, MURMUR, PALPITATIONS, FATIGUE 2D Dimensions IVSd 1.19 cm F: 0.6-1.0 LVEF (Visual) 79.60 % PWd 1.04 cm F: 0.6 - 1.0 LA Volume 58.30 mL LVDd 4.31 cm F: 3.9 - 5.3 LA Volume Index [id number] mL/m2 (M/F) 16-34 LVDs 2.24 cm F: 2.2 - 3.5 M-Mode Dimensions LA Diam 4.53 cm (1.9-4.0) LVDd 4.01 cm (3.5-5.7) LVDs 2.70 cm (3.5-5.7) EF (Teich) 61.60% EPSs 0.27 cm FS 32.70% EDV (Teich) 70.40 mL TAPSE 1.98 (<1.7) ESV (Teich) 27.00 mL LV Diastology E Decel Time 177 (160-240 msec) E/A Ratio 0.94 MED A' 11.40 cm/s LAT A' 12.40 cm/s Aortic Valve AoV Peak Moy. 136.0 (50-130 cm/s) AO Peak GR. 7.40 mmHg AO Mean GR. 4.00 (<5 mmHg) AO VTI 31.7 (18-25 cm) Mitral Valve MV A Velocity 73.0 (40-130 cm/s) E/A Ratio 0.94 Tricuspid Valve TR P. Velocity 251.00 cm/s Left Ventricle The left ventricle is normal size. The left ventricular systolic function is normal. The left ventricular ejection fraction is within the normal range. Proximal septal thickening is noted. There is normal LV segmental wall motion. The left ventricular diastolic function is normal. LVEF is 55%. Right Ventricle The right ventricle is normal size. The right ventricular systolic function is normal. Atria Left atrium is moderately dilated. Right atrium is mildly dilated. There is no Doppler evidence of interatrial shunt. Aortic Valve Aortic valve is mildly thickened. There is no aortic valvular stenosis. Trace aortic regurgitation. Mitral Valve The mitral valve is normal in structure. Mild mitral regurgitation. Tricuspid Valve Tricuspid valve is grossly normal in structure and function. Mild tricuspid regurgitation. RVSP is 20-25 mmHg. Pulmonic Valve The pulmonary valve is normal in structure. Trace pulmonic regurgitation. Great Vessels The aortic root is normal in size. IVC is normal in size and collapses >50% with inspiration. Pericardium There is no pericardial effusion. There is incidental finding of multiple anechoic hepatic masses, measuring approximately 2-3 cm in largest dimensions. These findings likely reflect hepatic cysts. Other Information Study Quality: Fair Conclusion Normal biventricular systolic function. Biatrial dilation. Mild MR, mild TR. There is incidental finding of multiple anechoic hepatic masses, measuring approximately 2-3 cm in largest dimensions. These findings likely reflect hepatic cysts. Correlation with recent or new CT abdomen is suggested. Electronically signed by : Jenny Garcias MD 09/28/2024 23:59:28
== END 2024-09-23 23:59 | disposition home or self-care (01) ==
LOC: RT 12:26
PROVIDERS: PCP Family Medicine; Visit Provider Nurse Practitioner Family
DX: I51.89 Other ill-defined heart diseases (principal); R07.89 Other chest pain; R53.83 Other fatigue; I25.10 Atherosclerotic heart disease of native coronary artery without angina pectoris; R00.2 Palpitations; E11.69 Type 2 diabetes mellitus with other specified complication; E78.2 Mixed hyperlipidemia
CPT/HCPCS: 93306

== ENCOUNTER 2024-09-25 07:20 | Outpatient (CLI) | payer OTHER, SELFPAY ==
--- NOTE | 2024-09-25 07:23 | CT_ITS ---
FINAL REPORT TECHNIQUE: Axial images through the abdomen and pelvis were performed without contrast. Coronal and sagittal reconstruction images were obtained and reviewed. This study was performed with techniques to keep radiation doses as low as reasonably achievable, (ALARA). Individualized dose reduction techniques using automated exposure control or adjustment of mA and/or kV according to the patient's size were employed. CLINICAL HISTORY: abdominal pain, hx of kidney stones COMPARISON: Report without images from 03/22/2021 FINDINGS: Abdomen: Lung bases are clear. There is mild global left renal atrophy. There are punctate 2 mm bilateral calyceal stones. There is no evidence of hydronephrosis. There is a 4 cm lower pole right renal mass, likely a cyst. There is a left adrenal nodule measuring 17 mm, likely an adenoma. Hepatic cysts are noted. The remaining solid organs are unremarkable. Surgical changes of gastric bypass are noted. There is a hiatal hernia involving the gastric remnant. The bowel is unremarkable. Pelvis: The appendix is unremarkable. There is mild sigmoid diverticulosis. The uterus and ovaries are unremarkable. No distal ureteral stones are seen. Bladder is unremarkable. No fluid collection or adenopathy is seen. IMPRESSION: Tiny bilateral renal stones without evidence of upper urinary tract obstruction. Moderate sized hiatal hernia involving the gastric remnant. No bowel obstruction. Reviewed, Interpreted and Dictated by Leighton Person MD Transcribed by Monika Rodríguez Authenticated and [facility]
== END 2024-09-25 23:59 | disposition home or self-care (01) ==
PROVIDERS: PCP Physician Assistant; Visit Provider Physician Assistant
DX: R31.9 Hematuria, unspecified (principal); R10.9 Unspecified abdominal pain; Z87.442 Personal history of urinary calculi
CPT/HCPCS: 74176

== ENCOUNTER 2024-11-03 08:33 | Outpatient (CLI) | payer OTHER, SELFPAY ==
[2024-11-03 09:03] LABS: Blood Urea Nitrogen 14 mg/dl (7-17); Estimated Glomerular Filt Rate 84 ml/min (>60); GFR (African American) 102 ML/MIN (>60)
== END 2024-11-03 23:59 | disposition home or self-care (01) ==
LOC: LAB 08:34
PROVIDERS: PCP Family Medicine; Visit Provider Urology
DX: Z01.812 Encounter for preprocedural laboratory examination (principal)
CPT/HCPCS: 36415; 82565; 84520

== ENCOUNTER 2024-11-04 07:42 | Outpatient (CLI) | payer OTHER, SELFPAY ==
--- NOTE | 2024-11-04 07:45 | MR_ITS ---
FINAL REPORT TECHNIQUE: Multiplanar and multisequence imaging was obtained before and after the intravenous injection of gadolinium contrast. CLINICAL HISTORY: RENAL MASS. abnormal ct COMPARISON: CT 09/25/2024 FINDINGS: There is a lobulated T2 hyperintense, T1 hypointense lesion in the dome of the left lobe of the liver measuring 4.7 cm. There is also a 1 cm T2 hyperintense lesion in the lateral inferior right lobe of the liver. The gallbladder is present. The spleen is normal in size and signal intensity. The right adrenal gland and pancreas are without acute abnormality. There is a left adrenal nodule measuring 2.5 cm with decreased signal intensity on out of phase imaging consistent with adenoma. There is a T2 hyperintense, T1 hypointense lesion in the right kidney measuring 4.5 cm. There is no significant hydronephrosis. Limited evaluation of the GI tract is without acute abnormality. There is no abdominal lymphadenopathy or ascites. Postcontrast images reveal no enhancement of the liver lesions or right renal lesion, consistent with cysts. Remaining solid organs enhance normally. IMPRESSION: Questioned lesion in the right kidney is consistent with a cyst. Liver lesions are consistent with cysts. Right adrenal adenoma. Reviewed, Interpreted and Dictated by Tonie Templeton MD Transcribed by Jessenia Alexis Authenticated and [facility]
[2024-11-04] MEDS: SODIUM CHLORIDE 0.9% 50ML BAG 25 ML IV (08:39)
[2024-11-04] MEDS: GADOTERIDOL INJ 20ML SYRINGE 17 ML IV (08:39)
== END 2024-11-04 23:59 | disposition home or self-care (01) ==
PROVIDERS: PCP Physician Assistant; Visit Provider Urology
DX: N28.89 Other specified disorders of kidney and ureter (principal)
CPT/HCPCS: 74183; A9576

== ENCOUNTER 2024-12-29 07:58 | Outpatient (CLI) | payer OTHER, SELFPAY ==
--- OUTSIDE RECORDS SUMMARY | 2024-12-29 08:00 | XMS_ITS | Continuity of Care Document ---
Author Organization [facility] Address [address] [place] [address] Care Team Providers Care Diamond Setter Apprentice Name Role Phone POLY LARAA Primary Care Provider [phone] Assessment Encounter Date Assessment Date Assessment LastModified by Organization Details LastModified Time 11/06/2024 11/06/2024 ASSESSMENT: Kimberly Gottlieb is a 64-year-old female with simple cysts on the kidneys and liver, and a benign adenoma on the adrenal gland. She has a history of recurrent UTIs and a previous kidney stone. PLAN: 1. Reassured the patient that the simple cysts on the kidneys and liver, as well as the adrenal adenoma, are benign and do not require follow-up unless symptomatic. 2. Discussed the importance of adequate hydration and advised the patient to drink more water to maintain clear urine with a slight hint of yellow. 3. Explained the options for preventing recurrent UTIs, including the use of Hiprex and topical estrogen cream, and reassured the patient that these treatments are safe and effective. 4. Advised the patient to monitor for any symptoms and to follow up as needed. 5. Recommended a plain X-ray in one year to monitor the tiny calcifications in the kidney and ensure they are not changing. [email or web address] Not available 11/06/2024 10:25:08 Plan of Treatment Reminders Order Date Submit Date Provider Last Modified By Organization Details Last Modified Time Details Appointments OV EST 15 2025 09:15A Vivian BARROSO MD Not available Not available Not available Lab urinalysi s, dipstick 2024 03/ 025 [email or web address] [facility], [address], [place], [address], 11/06/2024 10:23:33 Referral None recorded. Procedures None recorded. Surgeries None recorded. Imaging XR, kidney + ureter + bladder 2024 025 [email or web address] [facility] (Centralized Scheduling), [address], [place], [address], 12/16/2024 11:11:41 Medication Orders None recorded. Patient TargetsNo targets recorded. Patient InstructionsNo instructions recorded. Reason for Referral None Reported. Results Created Date Observation Date Name Description Value Unit Range Abnormal Flag Note LastModifiedBy Organization Detail LastModifiedTime 11/07/1911/06/2024 urina lysis , dipst ick Leukocytes (reference range) negati ve Not Available [place] [address] [address], [place], [address], 11/06/2024 09:56:37 11/07/19 25 11/06/2024 urina lysis , dipst ick Nitrite (reference range:) negati ve Not Available [place] [address], [place], [address], 11/06/2024 09:56:37 11/07/19 25 11/06/2024 urina lysis , dipst ick Urobilinogen (reference range) 0.2 Not Available [place] [address], [place], [address], 11/06/2024 09:56:37 11/07/19 25 11/06/2024 urina lysis , dipst ick Protein (reference range) negati ve Not Available [place] [address], [place], [address], 11/06/2024 09:56:37 11/07/19 25 11/06/2024 urina lysis , dipst ick pH (reference range 5-8.5) 6.5 Not Available [facility] [place] [address], [place], [address], 11/06/2024 09:56:37 11/07/19 25 11/06/2024 urina lysis , dipst ick Blood (reference range:) negati ve Not Available [facility] [place] [address] [address], [place], [address], 11/06/2024 09:56:37 11/07/19 25 11/06/2024 urina lysis , dipst ick Specific [place] (reference range) 1.010 Not Available [facility] [place] [address] [address], [place], [address], 11/06/2024 09:56:37 11/07/19 25 11/06/2024 urina lysis , dipst ick Ketone (reference range) negati ve Not Available [facility] [place] [address] [address] [facility] [facility] [address], [place], [address], 11/06/2024 09:56:37 11/07/19 25 11/06/2024 urina lysis , dipst ick Bilirubin (reference range) negati ve Not Available [facility] [place] [address] [address] [facility] [facility] [address], [place], [address], 11/06/2024 09:56:37 11/07/19 25 11/06/2024 urina lysis , dipst ick Glucose (reference range) negati ve Not Available [facility] [place] [address] [address], [place], [address], 11/06/2024 09:56:37 11/07/19 25 11/06/2024 urina lysis , dipst ick Color (reference range: yellow-brown ) Yellow Not Available [facility] [place] [address] [address], [place], [address], 11/06/2024 09:56:37 11/05/1911/04/2024 MRI, abdom en, w/wo contr ast No observ ation record ed. [facility] [address], [place], [address], 11/04/2024 11:51:31 Result Notes None recorded. Problems Name Problem SNOMED Code Status Onset Date Resolution Date Notes Provider Name and Address Organization Details Recorded Time History of calculus of kidney 525462295 Active 2024 Oliva Crase null, [place] - [facility] - [place] & [place] 5 10:10:23 Microscopic hematuria 565060582 Active 2024 Oliva Crase null, [place] [facility] & [place] 5 10:10:31 Heart failure 83745989 Active 2024 Oliva Crase null, [place] - [facility] - [facility] & [place] 5 10:10:40 Diabetes mellitus 09287187 Active 2024 Oliva Crase null, [place] - [facility] & [place] 5 10:10:48 Arthritis 5229635 Active 2024 Oliva Crase null, [place] [facility] & [place] 5 10:11:02 Right flank pain 301502963 Active 2024 LG BARROSO MD [address], [place], [address] , [place] - [facility] - [facility] & [place] 5 10:13:57 Overactive urinary bladder 608291119 Active 2024 LG BARROSO MD [address], [place], [address] , [place] - [facility] & [place] 5 10:14:15 Renal mass 704816488 Active 2024 LG BARROSO MD [address], [place], [address] , [place] - [facility] - [place] & [place] 5 14:04:30 Kidney stone 17294883 Active 2024 LG BARROSO MD [address], [place], [address] , [place] - [facility] & [place] 5 10:23:07 Cyst of kidney 837452721 Active 2024 LG BARROSO MD [address], [place], [address] , [place] - [facility] & [place] 5 10:23:04 Problem Notes None recorded. Procedures Surgical History Date Name Laterality Status Provider Name and Address Organization Details Recorded Time extracorporeal shockwave lithotripsy of calculus of kidney completed Oliva Aliza [place] [facility] & [place] 09/18/2024 10:11:36 repair of heart completed Oliva Aliza [place] - [facility] & [place] 09/18/2024 10:11:53 laparoscopic sleeve gastrectomy completed [facility] [place] - [place] [facility] & [place] 09/18/2024 10:12:08 Imaging Results None recorded. Procedure Notes None recorded. Medical Equipment None Reported. Allergies No known drug allergies Medications Name Sig Start Date Stop Date Status Note LastModified by Organization Details LastModified Time atorvastatin 40 mg tablet active Not Available Not Available Not Available phenazopyrid ine 200 mg tablet active Not Available Not Available Not Available metformin 850 mg tablet active Not Available Not Available Not Available ciprofloxaci n 250 mg tablet 09/18 completed Not Available Not Available Not Available ciprofloxaci n 500 mg tablet 09/18 completed Not Available Not Available Not Available nystatin 100,000 unit/gram topical cream active Not Available Not Available Not Available losartan 25 mg tablet active Not Available Not Available No t Available nitroglyceri n 0.4 mg sublingual tablet active Not Available Not Available Not Available metoprolol succinate ER 25 mg tablet,exten ded release 24 hr 10/02 completed Not Available Not Available Not Available cefdinir 300 mg capsule Take 1 capsule every 12 hours by oral route for 7 days. active Not Available Not Available No t Available brimonidine 0.15 % eye drops active Not Available Not Available Not Available multivitamin active Not Available Not Available Not Available metoprolol succinate ER 50 mg capsule sprinkle, ext. release 24 hr Take 1 capsule every day by oral route. active Not Available Not Available No t Available aspirin 81 mg capsule Take 1 capsule every day by oral route. active Not Available Not Available No t Available Vitals Date Recorded Body height Body mass index (BMI) Body weight Oxygen saturation Oxygen saturation in Arterial blood by Pulse oximetry Heart rate Systolic blood pressure Diastolic blood pressure Provider Name and Address Organization Details Last Updated DateTime 167.64 cm 28.7 kg/m2 67304.7 2 g 98 % 98 % 60 /min 140 mm[Hg] 70 mm[Hg] Gayatri Winston [facility] & [place] 09:56:20 Social History None recorded. Functional Status Question Answer Note LastModified by Organizat ion Details LastModified Time Do you use any illicit or recreational drugs? No Information not available 09/18/2024 What is your level of alcohol consumption? None Information not available 09/18/2024 Mental Status None recorded. Family History Relationship Description Onset Age of this Age Resolved Age Notes LastModified by Organization Details LastModified Time Father Diabetes mellitus [email or web address] Not available 09/17/2024 11:22:35 Father Malignant tumor of colon [email or web address] Not available 09/17/2024 11:22:45 Medical History Condition Response Kidney Stones Y Diabetes Y Heart Disease Y Gynecological HistoryNo gynecological history recorded. Obstetrics History GPAL:G 0 P 0 0 0 0 Past Encounters Encounter ID Performer Location Encounter Start Date Encounter Closed Date Diagnosis/Indication Diagnosis SNOMED-CT Code Diagnosis ICD10 Code Diagnosis Note [id number] LG BARROSO MD [facility] [place] [address] 11/06/2024 09:13:10 11/06/2024 10:25:20 Cyst of kidney 631753441 N28.1 Kidney stone 40571517 N2 0.0 Health Concerns Section Related Observation LastModified by Organization Detai ls LastModified Time None Recorded Concern Status LastModified by Organization Details LastModified Time None Recorded Payers Encounter Date Sequence Insurance Name Policy Number Policy Wade Covered Member ID Wade Member ID Guarantor Name 11/06/2024 1 LORRIE Sandoval [place] [place] Kimberly Gottlieb [id number] Kimberly Gottlieb Notes Date Note Type Note Provider Name and Address Organization Details Recorded Time 11/06/2024 text/html 11/06/24 CC: [id number]-female returns to my office for follow up kidney stone, MRI ([facility]) Right renal lesion consistent with benign cyst. Kimberly Gottlieb is a 64-year-old female who presents for a follow-up visit. She reports that she occasionally experiences a sensation similar to menstrual cramps located low in the abdomen. She denies any issues with urination, although she acknowledges that she does not drink enough water. She has a history of recurrent urinary tract infections (UTIs) that are often identified during routine annual exams, despite her being asymptomatic. She inquires about the presence of cysts on her kidneys and liver, which were identified in previous imaging studies. She also mentions a history of a kidney stone that was present for a couple of years without her knowledge. 10/07/24 [id number]-[id number]-female returns to clinic for follow up CT abd/pelvis ([facility]): Tiny bilateral nonobstructing stones seen in the kidneys, 4cm lower pole R renal mass likely benign cyst, L adrenal nodule 17mm likely adenoma hepatic cysts. Patient states occasionally has some L flank pain, other then that feels pretty good. Patient states urine has been ok lately and looks good, said PCP sent urine off and no growth. -- 09/18/24 75-hzji-flu-female present to office as new patient for history of kidney stone. Outside records show urinalysis positive for 3+ blood last month. She has a reported history of left ureteroscopy with laser lithotripsy with Dr. Juarez in 2020.Over the last month, patient has had discomfort in the right lower quadrant and also has experienced since of urinary urgency. She states that at times, the urine had an appearance of chocolate milk . She denies any fevers or dysuria. She was placed on antibiotics twice the 2nd course being last week. She states her symptoms are somewhat improved but still present. 11/05/24 MRI abd w/w/o ([facility]): right renal lesion consistent with cyst, right adrenal adenoma, liver lesions consistent with cysts11/04/23 Cr 0.70, GFR UC: Escherichia coli09/25/24 CT abd/pelvis ([facility]): mild global L renal calyceal stones no hydronephrosis, 4cm lower pole R renal mass which is likely cyst, L adrenal nodule 17mm likely adenoma hepatic cysts. no distal ureteral stones seen. tiny bilateral renal stones w/out evidence of upper urinary tract mtykcjbdvbm68/11/25: UA 3+ Blood05/31/21 KUB Left Kidney Stone LG BARROSO MD [address], [place], [address], [facility] & [place] 11/06/2024 10:35:25 OBGyn Episode No OBEpisode recorded.
--- NOTE | 2024-12-29 08:01 | MM_ITS ---
PROCEDURE INFORMATION: Exam: MG Bilateral Screening 3D Mammography Exam date and time: 12/29/2024 8:07 AM Age: 64 years old Clinical indication: Screening examination TECHNIQUE: Imaging protocol: Bilateral Screening tomosynthesis and 2D mammography including computer-aided detection (CAD) when performed. COMPARISON: 1. MG MM DIG SCREENING MAMM BI W/CAD 12/11/2023 3:39 PM 2. MG MM DIG SCREENING MAMM BI W/CAD 11/30/2022 7:55 AM FINDINGS: MAMMOGRAPHY: Breast composition: There are scattered areas of fibroglandular density. Mass: None. Architectural distortion: None. Calcifications: No suspicious calcifications. Asymmetric density: None. Skin thickening: None. Axillary adenopathy: None. IMPRESSION: No mammographic evidence of malignancy. Annual screening is recommended unless otherwise clinically indicated. ASSESSMENT: BI-RADS Category 1: Negative.
--- OUTSIDE RECORDS SUMMARY | 2024-12-29 08:01 | XMS_ITS | Data Portability ---
Author Organization [facility] - [facility] UGO ADMIN Address [address] [place] [address] Care Team Providers Care Gray Tender Name Role Phone LUCIE LARA Primary Care Provider [phone] Assessment Encounter Date Assessment Date Assessment LastModified [...] Not available Lab urinalysi s, dipstick 2024 025 [email or web address] [facility], [address], [place], [address], 11/06/2024 10:23:33 urinalysi s, dipstick 2024 025 [email or web address] [facility], [address], [place], [address], 10/02/2024 14:36:58 culture, urine + sensitivi ty [address] (Registration ), [address], [place], [address], 10/23/2024 08:48:20 Referral None recorded. Procedures None recorded. Surgeries None recorded. Imaging XR, kidney + ureter + bladder [address] (Centralized Scheduling), [address], [place], [address], 12/16/2024 11:11:41 MRI, abdomen, w/wo contrast 2024 025 [facility] (Scheduling), [address], [place], [address], 11/04/2024 10:48:36 CT, abdomen + pelvis, w/o contrast [address] (Centralized Scheduling), [address] [place], [address], 10/02/2024 14:19:34 Medication Orders None recorded. Patient TargetsNo targets recorded. Patient InstructionsNo instructions recorded. Reason for Referral None Reported. Results Created Date Observation Date Name Description Value Unit Range Abnormal Flag Note LastModifiedBy Organization Detail LastModifiedTime 10/02/1910/02/2024 urina lysis , dipst ick Leukocytes (reference range) trace Not Available [facility] [address], [place], [address], 10/02/2024 13:51:16 10/02/19 25 10/02/2024 urina lysis , dipst ick Nitrite (reference range:) negati ve Not Available [place] [address] [address] [facility] 100, [place], [address], 10/02/2024 13:51:16 10/02/19 25 10/02/2024 urina lysis , dipst ick Protein (reference range) trace Not Available [place] [address] [address] [facility] 100, [place], [address], 10/02/2024 13:51:16 10/02/19 25 10/02/2024 urina lysis , dipst ick pH (reference range 5-8.5) 5.0 Not Available [place] [address] [address] [facility] 100, [place], [address], 10/02/2024 13:51:16 10/02/19 25 10/02/2024 urina lysis , dipst ick Blood (reference range:) negati ve Not Available [place] [address] [address] [facility] 100, [place], [address], 10/02/2024 13:51:16 10/02/19 25 10/02/2024 urina lysis , dipst ick Specific [place] (reference range) 1.000 Not Available [place] [address] [address] [facility] 100, [place], [address], 10/02/2024 13:51:16 10/02/19 25 10/02/2024 urina lysis , dipst ick Ketone (reference range) negati ve Not Available [place] [address] [address] [facility] 100, [place], [address], 10/02/2024 13:51:16 10/02/19 25 10/02/2024 urina lysis , dipst ick Glucose (reference range) negati ve Not Available [place] [address] [address] [facility] [address], [place], [address], 10/02/2024 13:51:16 10/02/19 25 10/02/2024 urina lysis , dipst ick Color (reference range: yellow-brown ) Yellow Not Available [place] [address] [address] [facility] 100, [place], [address], 10/02/2024 13:51:16 11/07/19 25 11/06/2024 urina lysis , dipst ick Leukocytes (reference range) negati ve Not Available [place] [address] [address] [facility] 100, [place], [address], 11/06/2024 09:56:37 11/07/19 25 11/06/2024 urina lysis , dipst ick Nitrite (reference range:) negati ve Not Available [place] [address] [address] [facility] 100, [place], [address], 11/06/2024 09:56:37 11/07/19 25 11/06/2024 urina lysis , dipst ick Urobilinogen (reference range) 0.2 Not Available [place] [address] [address] [facility] 100, [place], [address], 11/06/2024 09:56:37 11/07/19 25 11/06/2024 urina lysis , dipst ick Protein (reference range) negati ve Not Available [place] [address] [address] [facility] 100, [place], [address], 11/06/2024 09:56:37 11/07/19 25 11/06/2024 urina lysis , dipst ick pH (reference range 5-8.5) 6.5 Not Available Berenice tral [place] [address] [address] [facility] 100, [place], [address], 11/06/2024 09:56:37 11/07/19 25 11/06/2024 urina lysis , dipst ick Blood (reference range:) negati ve Not Available [place] [address] [address] [facility] 100, [place], [address], 11/06/2024 09:56:37 11/07/19 25 11/06/2024 urina lysis , dipst ick Specific [place] (reference range) 1.010 Not Available [place] [address] [address] [facility] 100, [place], [address], 11/06/2024 09:56:37 11/07/19 25 11/06/2024 urina lysis , dipst ick Ketone (reference range) negati ve Not Available [place] [address] [address] [facility] 100, [place], [address], 11/06/2024 09:56:37 11/07/19 25 11/06/2024 urina lysis , dipst ick Bilirubin (reference range) negati ve Not Available [place] [address] [address] [facility] 100, [place], [address], 11/06/2024 09:56:37 11/07/19 25 11/06/2024 urina lysis , dipst ick Glucose (reference range) negati ve Not Available [place] [address] [address] [facility] [address], [place], [address], 11/06/2024 09:56:37 11/07/19 25 11/06/2024 urina lysis , dipst ick Color (reference range: yellow-brown ) Yellow Not Available [place] [address] [address] [facility] 100, [place], [address], 11/06/2024 09:56:37 09/25/19 25 09/25/2024 CT, abdom en + pelvi s, w/o contr ast No observ ation record ed. [email or web address] [facility] (Med Record) [address], [place], [address], 09/25/2024 14:46:27 11/05/1911/04/2024 MRI, abdom en, w/wo contr ast No observ ation record ed. RICHARD [facility] [address], [place], [address], 11/04/2024 11:51:31 Result Notes None recorded. Problems Name Problem SNOMED Code Status Onset Date Resolution Date Notes Provider Name and Address Organization Details Recorded Time History of calculus of kidney 100693572 Active 2024 Olivacindy Abramsse null, [place] - [facility] - [place] & [place] 5 10:10:23 Microscopic hematuria 550139997 Active 2024 Oliva Alizase null, [place] [facility] [place] & [place] 5 10:10:31 Heart failure 60353672 Active 2024 Oliva Crase null, [place] [facility] [place] 5 10:10:40 Diabetes mellitus 93410935 Active 2024 Oliva Crase null, [place] [facility] [place] 5 10:10:48 Arthritis 4191818 Active 2024 Oliva Crase null, [place] [facility] [place] 5 10:11:02 Right flank pain 289804835 Active 2024 LG BARROSO MD [address], [place], [address] , [place] - [facility] - [place] & [place] 5 10:13:57 Overactive urinary bladder 838140915 Active 2024 LG BARROSO MD [address], [place], [address] , [place] - [facility] - [place] & [place] 5 10:14:15 Renal mass 866566896 Active 2024 LG BARROSO MD [address], [place], [address] , [place] - [facility] - [place] & [place] 14:04:30 Kidney stone 12445958 Active [address], [place], [address] , [place] - [facility] - [place] & [place] 10:23:07 Cyst of kidney 666320199 Active [address], [place], [address] , [place] - [facility] & [place] 10:23:04 Problem Notes None recorded. Procedures Surgical History Date Name Laterality Status Provider Name and Address Organization Details Recorded Time extracorporeal shockwave lithotripsy of calculus of kidney completed Oliva Valle [place] - [facility] & [place] 09/18/2024 10:11:36 repair of heart completed Oliva Valle [place] [facility] & [place] 09/18/2024 10:11:53 laparoscopic sleeve gastrectomy completed Oliva Aliza [place] - [facility] & [place] 09/18/2024 10:12:08 Imaging Results Imaging Date Name Status LastModified by Organiz ation Details LastModified Time 09/25/2024 CT, abdomen + pelvis, w/o contrast completed [email or web address] [facility] (Med Record) [address], [place], [address], 09/25/2024 14:46:27 11/04/2024 MRI, abdomen, w/wo contrast completed [facility] [address], [place], [address], 11/04/2024 11:51:31 Procedure Notes None recorded. Medical Equipment None [...] height Body mass index (BMI) Body weight Body temperature Oxygen saturation Oxygen saturation in Arterial blood by Pulse oximetry Heart rate Systolic blood pressure Diastolic blood pressure Provider Name and Address Organization Details Last Updated DateTime 5 167.64 cm 27.4 kg/m2 46630.7 g 97.7 [degF] 100 % 100 % 82 /min 140 mm[Hg] 80 mm[Hg] Oliva Abrams [facility] & [place] 5 10:05:39 Date Recorded Body height Body mass index (BMI) Body weight Oxygen saturation Oxygen saturation in Arterial blood by Pulse oximetry Heart rate Systolic blood pressure Diastolic blood pressure Provider Name and Address Organization Details Last Updated DateTime 5 167.64 cm 29.1 kg/m2 06798.6 3 g 98 % 98 % 75 /min 144 mm[Hg] 76 mm[Hg] Sofia Tiera [place] - [facility] & [place] 5 13:49:38 Date Recorded Body height Body mass index (BMI) Body weight Oxygen saturation Oxygen saturation in Arterial blood by Pulse oximetry Heart rate Systolic blood pressure Diastolic blood pressure Provider Name and Address Organization Details Last Updated DateTime 167.64 cm 28.7 kg/m2 44832.7 2 g 98 % 98 % 60 /min 140 mm[Hg] 70 mm[Hg] Gayatri GUTIERREZ [facility] & [place] 09:56:20 Social History None recorded. Functional Status [...] 11:22:35 Father Malignant tumor of colon karthik smith Not available 09/17/2024 11:22:45 Medical History Condition Response Kidney Stones Y Diabetes Y Heart Disease Y Gynecological HistoryNo gynecological history recorded. Obstetrics History GPAL:G 0 P 0 0 0 0 Past Encounters Encounter ID Performer Location Encounter Start Date Encounter Closed Date Diagnosis/Indication Diagnosis SNOMED-CT Code Diagnosis ICD10 Code Diagnosis Note [id number] LG BARROSO MD [facility] [address] [facility] 100 [place] [address] 09/18/2024 09:33:09 09/18/2024 10:28:09 Right flank pain 578508296 R10.9 We will order stat CT of the abdomen and pelvis without contrast. History of calculus of kidney 190383001 Z87.442 see above Overactive urinary bladder 261333277 N32.81 Possibly due to distal ureteral stone. We will obtain CT. [id number] LG BARROSO MD [facility] 00 [address] [facility] 100 [place] [address] 10/02/2024 13:32:35 10/02/2024 14:08:37 History of calculus of kidney 099665691 Z87.442 see above Renal mass 842984459 N28 .89 Possibly cyst, though unable to confirm with lack of contrast. We will check MRI of the abdomen with and without IV contrast for further characteri zation. Kidney stone 09143701 N2 0.0 I reviewed imaging, specifical ly the tiny punctate stones. We will continue observatio n for now. [id number] LG BARROSO MD [facility] [place] [address] 11/06/2024 09:13:10 11/06/2024 10:25:20 Cyst of kidney 864851620 N28.1 Kidney stone 12980770 N2 0.0 Health Concerns Section Related Observation LastModified by Organization Detai ls LastModified Time None Recorded Concern Status LastModified by Organization Details LastModified Time None Recorded Advance Directives Directive None Recorded Payers Insurance Date Sequence Insurance Name Policy Number Policy Wade Covered Member ID Wade Member ID Guarantor Name 11/03/2024 1 ANNEMARIEVINICIUS Lori ([facility]) Kimberly Gottlieb [id number] Kimberly Gottlieb Notes Date Note Type Note Provider Name and Address Organization Details Recorded Time 09/18/2024 text/html 09/18/24 22-jptu-iwc-female present to office as new patient for history of kidney stone. Outside records show urinalysis positive for 3+ blood last month. She has a reported history of left ureteroscopy with laser lithotripsy with Dr. Juarez in 2020. Over the last month, patient has had discomfort in the right lower quadrant and also has experienced since of urinary urgency. She states that at times, the urine had an appearance of chocolate milk . She denies any fevers or dysuria. She was placed on antibiotics twice the 2nd course being last week. She states her symptoms are somewhat improved but still present. 08/13 09/06: UA 3+ Blood05/31/21 KUB Left Kidney Stone LG BARROSO MD [address], [place], [address], [facility] & [place] 09/18/2024 10:24:49 10/02/2024 text/html 10/07/24 07-wpmm-lja-female returns to clinic for follow up CT abd/pelvis ([facility]): Tiny bilateral nonobstructing stones seen in the kidneys, 4cm lower pole R renal mass likely benign cyst, L adrenal nodule 17mm likely adenoma hepatic cysts. Patient states occasionally has some L flank pain, other then that feels pretty good. Patient states urine has been ok lately and looks good, said PCP sent urine off and no growth. -- 09/18/24 92-hped-foy-female present to office as new patient for [...] symptoms are somewhat improved but still present. 09/25/24 CT abd/pelvis ([facility]): mild global L renal calyceal stones no hydronephrosis, 4cm lower pole R renal mass which is likely cyst, L adrenal nodule 17mm likely adenoma hepatic cysts.no distal ureteral stones seen. tiny bilateral renal stones w/out evidence of upper urinary tract obstruction 08/23/24: UA 3+ Blood05/31/21 KUB Left Kidney Stone 10/07/24 36-diqe-fir-female returns to clinic for follow up CT abd/pelvis ([facility]): Tiny bilateral nonobstructing stones seen in the kidneys, 4cm lower pole R renal mass likely benign cyst, L adrenal nodule 17mm likely adenoma hepatic cysts. Review images does appear to show cortical thinning of the left kidney. -- 09/18/24 69-ctju-mce-female present to office as new patient for [...] symptoms are somewhat improved but still present. 09/25/24 CT abd/pelvis ([facility]): mild global L renal calyceal stones no hydronephrosis, 4cm lower pole R renal mass which is likely cyst, L adrenal nodule 17mm likely adenoma hepatic cysts.no distal ureteral stones seen. tiny bilateral renal stones w/out evidence of upper urinary tract obstruction 08/23/24: UA 3+ Blood05/31/21 KUB Left Kidney Stone LG BARROSO MD [address] [facility], [place], [address], [facility] & [place] 10/02/2024 14:07:22 11/06/2024 text/html 11/06/24 CC: 67-apcg-eix-female returns to my office for follow up kidney stone, MRI ([facility]) Right renal lesion consistent with benign [...] couple of years without her knowledge. 10/07/24 89-sbhf-eie-female returns to clinic for follow up CT abd/pelvis ([facility]): Tiny bilateral nonobstructing stones seen in the kidneys, 4cm lower pole R renal mass likely benign cyst, L adrenal nodule 17mm likely adenoma hepatic cysts. Patient states occasionally has some L flank pain, other then that feels pretty good. Patient states urine has been ok lately and looks good, said PCP sent urine off and no growth. -- 09/18/24 82-hcqh-bfg-female present to office as new patient for [...] but still present. 11/05/24 MRI abd w/w/o ([facility]): right renal lesion consistent with cyst, right adrenal adenoma, liver lesions consistent with cysts11/04/23 Cr 0.70, GFR UC: Escherichia coli09/25/24 CT abd/pelvis ([facility]): mild global L renal calyceal stones no hydronephrosis, 4cm lower pole R renal mass which is likely cyst, L adrenal nodule 17mm likely adenoma hepatic cysts. no distal ureteral stones seen. tiny bilateral renal stones w/out evidence of upper urinary tract [id number]/11/25: UA 3+ Blood05/31/21 KUB Left Kidney Stone LG BARROSO MD [address] [facility], [place], [address], [facility] - [place] & [place] 11/06/2024 10:35:25 OBGyn Episode No OBEpisode recorded.
== END 2024-12-29 23:59 | disposition home or self-care (01) ==
LOC: RAD 07:58
PROVIDERS: PCP Family Medicine; Visit Provider Family Medicine
DX: Z12.31 Encounter for screening mammogram for malignant neoplasm of breast (principal); R92.323 Mammographic fibroglandular density, bilateral breasts
CPT/HCPCS: 77063; 77067

== ENCOUNTER 2025-01-08 08:50 | Outpatient (CLI) | payer OTHER, SELFPAY ==
--- OUTSIDE RECORDS SUMMARY | 2025-01-08 08:53 | XMS_ITS | Data Portability ---
Author Organization [facility] Address [address] [place] [id number] Care Team Providers Care Eyelet Row Marker Name Role Phone LUCIE LARA Primary Care Provider Assessment Encounter Date Assessment Date Assessment LastModified [...] Lab urinalysi s, dipstick 2024 025 [email or web address] [facility], [address], [place], [address], 11/06/2024 10:23:33 urinalysi s, dipstick 2024 025 [email or web address] [facility], [address], [place], [address], 10/02/2024 14:36:58 culture, urine + sensitivi ty [address] (Registration ), [address], [place], [address], 10/23/2024 08:48:20 Referral None recorded. Procedures None recorded. Surgeries None recorded. Imaging XR, kidney + ureter + bladder [address] (Centralized Scheduling), [address], [place], [address], 01/01/2025 08:47:56 MRI, abdomen, w/wo contrast 2024 025 [facility] (Scheduling), [address], [place], [address], 11/04/2024 10:48:36 CT, abdomen + pelvis, w/o contrast [address] (Centralized Scheduling), [address] [place], [address], 10/02/2024 14:19:34 Medication Orders None recorded. Patient TargetsNo targets recorded. Patient InstructionsNo instructions recorded. Reason for Referral None Reported. Results Created Date Observation Date Name Description Value Unit Range Abnormal Flag Note LastModifiedBy Organization Detail LastModifiedTime 10/02/1910/02/2024 urina lysis , dipst ick Leukocytes (reference range) trace Not Available [facility] [address], [place], [address], 10/02/2024 13:51:16 10/02/19 25 10/02/2024 urina lysis , dipst ick Nitrite (reference range:) negati ve Not Available [place] [address] [address] [facility] [address], [place], [address], 10/02/2024 13:51:16 10/02/19 25 10/02/2024 urina lysis , dipst ick Protein (reference range) trace Not Available [place] [address] [address] [facility] [address], [place], [address], 10/02/2024 13:51:16 10/02/19 25 10/02/2024 urina lysis , dipst ick pH (reference range 5-8.5) 5.0 Not Available [place] [address] [address] [facility] [address], [place], [address], 10/02/2024 13:51:16 10/02/19 25 10/02/2024 urina lysis , dipst ick Blood (reference range:) negati ve Not Available [place] [address] [address] [facility] [address], [place], [address], 10/02/2024 13:51:16 10/02/19 25 10/02/2024 urina lysis , dipst ick Specific [place] (reference range) 1.000 Not Available [place] [address] [address] [facility] [address], [place], [address], 10/02/2024 13:51:16 10/02/19 25 10/02/2024 urina lysis , dipst ick Ketone (reference range) negati ve Not Available [place] [address] [address] [facility] [address], [place], [address], 10/02/2024 13:51:16 10/02/19 25 10/02/2024 urina lysis , dipst ick Glucose (reference range) negati ve Not Available [place] [address] [address] [facility] [address], [place], [address], 10/02/2024 13:51:16 10/02/19 25 10/02/2024 urina lysis , dipst ick Color (reference range: yellow-brown ) Yellow Not Available [place] [address] [address] [facility] [address], [place], [address], 10/02/2024 13:51:16 11/07/19 25 11/06/2024 urina lysis , dipst ick Leukocytes (reference range) negati ve Not Available [place] [address] [address] [facility] [address], [place], [address], 11/06/2024 09:56:37 11/07/19 25 11/06/2024 urina lysis , dipst ick Nitrite (reference range:) negati ve Not Available [place] [address] [address] [facility] [address], [place], [address], 11/06/2024 09:56:37 11/07/19 25 11/06/2024 urina lysis , dipst ick Urobilinogen (reference range) 0.2 Not Available [place] [address] [address] [facility] [address], [place], [address], 11/06/2024 09:56:37 11/07/19 25 11/06/2024 urina lysis , dipst ick Protein (reference range) negati ve Not Available [place] [address] [address] [facility] [address], [place], [address], 11/06/2024 09:56:37 11/07/19 25 11/06/2024 urina lysis , dipst ick pH (reference range 5-8.5) 6.5 Not Available [place] [address] [address] [facility] [address], [place], [address], 11/06/2024 09:56:37 11/07/19 25 11/06/2024 urina lysis , dipst ick Blood (reference range:) negati ve Not Available [place] [address] [address] [facility] [address], [place], [address], 11/06/2024 09:56:37 11/07/19 25 11/06/2024 urina lysis , dipst ick Specific [place] (reference range) 1.010 Not Available [place] [address] [address] [facility] [address], [place], [address], 11/06/2024 09:56:37 11/07/19 25 11/06/2024 urina lysis , dipst ick Ketone (reference range) negati ve Not Available [place] [address] [address] [facility] [address], [place], [address], 11/06/2024 09:56:37 11/07/19 25 11/06/2024 urina lysis , dipst ick Bilirubin (reference range) negati ve Not Available [place] [address] [address] [facility] [address], [place], [address], 11/06/2024 09:56:37 11/07/19 25 11/06/2024 urina lysis , dipst ick Glucose (reference range) negati ve Not Available [place] [address] [address] [facility] [address], [place], [address], 11/06/2024 09:56:37 11/07/19 25 11/06/2024 urina lysis , dipst ick Color (reference range: yellow-brown ) Yellow Not Available [place] [address] [address] [facility] [address], [place], [address], 11/06/2024 09:56:37 09/25/19 25 09/25/2024 CT, abdom en + pelvi s, w/o contr ast No observ ation record ed. [email or web address] [facility] (Med Record) [address], [place], [address], 09/25/2024 14:46:27 11/05/1911/04/2024 MRI, abdom en, w/wo contr ast No observ ation record ed. RICHARD [facility] [address], [place], [address], 11/04/2024 11:51:31 Result Notes None recorded. Problems Name Problem SNOMED Code Status Onset Date Resolution Date Notes Provider Name and Address Organization Details Recorded Time History of calculus of kidney 677370555 Active 2024 Olivacindy Abramsse null, [place] - [facility] - [place] & [place] 5 10:10:23 Microscopic hematuria 862280079 Active 2024 Oliva Alizase null, [place] - [facility] [place] & [place] 5 10:10:31 Heart failure 72670668 Active 2024 Oliva Crase null, [place] [facility] [place] & [place] 5 10:10:40 Diabetes mellitus 41100104 Active 2024 Oliva Crase null, [place] [facility] [place] & [place] 5 10:10:48 Arthritis 1933287 Active 2024 Oliva Crase null, [place] [facility] [place] & [place] 5 10:11:02 Right flank pain 015795191 Active 2024 LG BARROSO MD [address], [place], [address] , [place] - [facility] - [place] & [place] 5 10:13:57 Overactive urinary bladder 809426992 Active 2024 LG BARROSO MD [address], [place], [address] , [place] - [facility] - [place] & [place] 5 10:14:15 Renal mass 669363399 Active 2024 LG BARROSO MD [address], [place], [address] , [place] - [facility] - [place] & [place] 14:04:30 Kidney stone 04886495 Active [address], [place], [address] , [place] - [facility] - [place] & [place] 5 10:23:07 Cyst of kidney 863047065 Active [address], [place], [address] , [place] - [facility] & [place] 5 10:23:04 Problem Notes None recorded. Procedures Surgical History Date Name Laterality Status Provider Name and Address Organization Details Recorded Time extracorporeal shockwave lithotripsy of calculus of kidney completed Oliva Valle [place] - [facility] & [place] 09/18/2024 10:11:36 repair of heart completed Olivacindy Valle [place] - [facility] & [place] 09/18/2024 10:11:53 laparoscopic sleeve gastrectomy completed Olivacindy Valle [place] - [facility] & [place] 09/18/2024 10:12:08 Imaging Results None recorded. Procedure [...] Updated DateTime 5 167.64 cm 27.4 kg/m2 13040.7 g 97.7 [degF] 100 % 100 % 82 /min 140 mm[Hg] 80 mm[Hg] Oliva Valle [facility] & [place] 5 10:05:39 Date Recorded Body height Body mass index (BMI) Body weight Oxygen saturation Oxygen saturation in Arterial blood by Pulse oximetry Heart rate Systolic blood pressure Diastolic blood pressure Provider Name and Address Organization Details Last Updated DateTime 5 167.64 cm 29.1 kg/m2 10582.6 3 g 98 % 98 % 75 /min 144 mm[Hg] 76 mm[Hg] Sofia Mccartney [facility] & [place] 5 13:49:38 Date Recorded Body height Body mass index (BMI) Body weight Oxygen saturation Oxygen saturation in Arterial blood by Pulse oximetry Heart rate Systolic blood pressure Diastolic blood pressure Provider Name and Address Organization Details Last Updated DateTime 5 167.64 cm 28.7 kg/m2 40345.7 2 g 98 % 98 % 60 /min 140 mm[Hg] 70 mm[Hg] Gayatri Winston [facility] & [place] 5 09:56:20 Social History None recorded. Functional Status [...] available 09/17/2024 11:22:45 Medical History Condition Response Diabetes Y Kidney Stones Y Heart Disease Y Gynecological HistoryNo gynecological history recorded. Obstetrics History GPAL:G 0 P 0 0 0 0 Past Encounters Encounter ID Performer Location Encounter Start Date Encounter Closed Date Diagnosis/Indication Diagnosis SNOMED-CT Code Diagnosis ICD10 Code Diagnosis Note [id number] LG BARROSO MD [facility]1 00 [address] [facility] [address] [place] [address] 09/18/2024 09:33:09 09/18/2024 10:28:09 Right flank pain 416598123 R10.9 We will order stat CT of the abdomen and pelvis without contrast. History of calculus of kidney 531431067 Z87.442 see above Overactive urinary bladder 175083029 N32.81 Possibly due to distal ureteral stone. We will obtain CT. [id number] LG BARROSO MD [facility] 00 [address] [facility] [address] [place] [address] 10/02/2024 13:32:35 10/02/2024 14:08:37 History of calculus of kidney 652819310 Z87.442 see above Renal mass 289530239 N28 .89 Possibly cyst, though unable to confirm with lack of contrast. We will check MRI of the abdomen with and without IV contrast for further characteri zation. Kidney stone 63118615 N2 0.0 I reviewed imaging, specifical ly the tiny punctate stones. We will continue observatio n for now. [id number] LG BARROSO MD [facility]1 00 [address] [facility] [address] [place] [address] 11/06/2024 09:13:10 11/06/2024 10:25:20 Cyst of kidney 732346402 N28.1 Kidney stone 00047382 N2 0.0 Health Concerns Section Related Observation LastModified by Organization Detai ls LastModified Time None Recorded Concern Status LastModified by Organization Details LastModified Time None Recorded Advance Directives Directive None Recorded Payers Insurance Date Sequence Insurance Name Policy Number Policy Wade Covered Member ID Wade Member ID Guarantor Name 11/03/2024 1 LORRIE Sandoval ([facility]) Kimberly Gottlieb [id number] Kimberly Gottlieb Notes Date Note Type Note Provider Name and Address Organization Details Recorded Time 09/18/2024 text/html 09/18/24 63-sjea-asa-female present to office as new patient for [...] Kidney Stone LG BARROSO MD [address] [facility], [place], [address] [place] [facility] [place] 09/18/2024 10:24:49 10/02/2024 text/html 10/07/24 02-muyx-ugp-female returns to clinic for follow up CT abd/pelvis ([facility]): Tiny bilateral nonobstructing stones seen in the kidneys, 4cm lower pole R renal mass likely benign cyst, L adrenal nodule 17mm likely adenoma hepatic cysts. Patient states occasionally has some L flank pain, other then that feels pretty good. Patient states urine has been ok lately and looks good, said PCP sent urine off and no growth. -- 09/18/24 35-qlls-fve-female present to office as new patient for [...] improved but still present. 09/25/24 CT abd/pelvis ([facility]): mild global L renal calyceal stones no hydronephrosis, 4cm lower pole R renal mass which is likely cyst, L adrenal nodule 17mm likely adenoma hepatic cysts.no distal ureteral stones seen. tiny bilateral renal stones w/out evidence of upper urinary tract obstruction 08/23/24: UA 3+ Blood05/31/21 KUB Left Kidney Stone 10/07/24 04-ncmw-uvc-female returns to clinic for follow up CT abd/pelvis ([facility]): Tiny bilateral nonobstructing stones seen in the kidneys, 4cm lower pole R renal mass likely benign cyst, L adrenal nodule 17mm likely adenoma hepatic cysts. Review images does appear to show cortical thinning of the left kidney. -- 09/18/24 12-ifrk-znt-female present to office as new patient for [...] improved but still present. 09/25/24 CT abd/pelvis ([facility]): mild global L renal calyceal stones no hydronephrosis, 4cm lower pole R renal mass which is likely cyst, L adrenal nodule 17mm likely adenoma hepatic cysts.no distal ureteral stones seen. tiny bilateral renal stones w/out evidence of upper urinary tract obstruction 08/23/24: UA 3+ Blood05/31/21 KUB Left Kidney Stone LG BARROSO MD [address] [facility], [place], [address], [place] - [facility] - [place] & [place] 10/02/2024 14:07:22 11/06/2024 text/html 11/06/24 CC: 53-xjfu-afy-female returns to my office for follow up kidney stone, MRI ([facility]) Right renal lesion consistent with benign cyst. [...] couple of years without her knowledge. 10/07/24 36-rtoc-jhx-female returns to clinic for follow up CT abd/pelvis ([facility]): Tiny bilateral nonobstructing stones seen in the kidneys, 4cm lower pole R renal mass likely benign cyst, L adrenal nodule 17mm likely adenoma hepatic cysts. Patient states occasionally has some L flank pain, other then that feels pretty good. Patient states urine has been ok lately and looks good, said PCP sent urine off and no growth. -- 09/18/24 06-acpf-mug-female present to office as new patient for [...] but still present. 11/05/24 MRI abd w/w/o ([facility]): right renal lesion consistent with cyst, right adrenal adenoma, liver lesions consistent with cysts11/04/23 Cr 0.70, GFR UC: Escherichia coli09/25/24 CT abd/pelvis ([facility]): mild global L renal calyceal stones no hydronephrosis, 4cm lower pole R renal mass which is likely cyst, L adrenal nodule 17mm likely adenoma hepatic cysts. no distal ureteral stones seen. tiny bilateral renal stones w/out evidence of upper urinary tract fnikagowezm08/11/25: UA 3+ Blood05/31/21 KUB Left Kidney Stone LG BARROSO MD [address], [place], [address], [facility] - [place] & [place] 11/06/2024 10:35:25 OBGyn Episode No OBEpisode recorded.
--- NOTE | 2025-01-08 08:55 | XR_ITS ---
FINAL REPORT TECHNIQUE: Bone densitometry calculations of the lumbar spine and bilateral hips were obtained. CLINICAL HISTORY: SCREENING COMPARISON: 12/29/2021 FINDINGS: Using L1-4, the bone mineral density of the spine is 1.133 g/cm2, corresponding to T-score of 0.8. Using the left hip, the bone mineral density of the femoral neck is 0.813 g/cm2, corresponding to a T-score of -1.1. Using the right hip, the bone mineral density of the femoral neck is 0.671 g/cm?, corresponding to a T-score of -1.6. NOTE: T-score: Standard deviation compared with peak bone mass of young adult mean. *Following the recommendations of the International Society of Bone densitometry, classification of hip BMD is based on the lower of two T-scores; total hip or femoral neck. IMPRESSION: Diminished bone mineral density of the bilateral hips consistent with osteopenia. Normal bone mineral density of the lumbar spine. Reviewed, Interpreted and Dictated by Eugene Lorenzo MD Transcribed by Aleena Forbes Authenticated and [facility]
== END 2025-01-08 23:59 | disposition home or self-care (01) ==
LOC: RAD 08:51
PROVIDERS: PCP Physician Assistant; Visit Provider Physician Assistant
DX: M85.852 Other specified disorders of bone density and structure, left thigh (principal); M85.851 Other specified disorders of bone density and structure, right thigh; Z13.9 Encounter for screening, unspecified
CPT/HCPCS: 77080